=== PATIENT | female | born 1990 | race Hispanic/Latino ===

== ENCOUNTER 2022-07-20 14:21 | Emergency (ER) | payer OTHER ==
--- OUTSIDE RECORDS SUMMARY | 2022-07-20 14:25 | XMS REPORT | Continuity of Care Document ---
:1990 Author Organization [facility] t Address Formerly [facility] Gordon [address] [place] [address] Care Team Providers Name Role Phone Corbin Howard Attending Clinician Unavailable Jesu Andino Attending Clinician Unavailable Queenie Zepeda Attending Clinician Unavailable Zheng Alonso Attending Clinician Physician, No Primary or Family Admitting Clinician Unavaila ble Kendall, Roselia Admitting Clinician Unavailable Corbin Howard Admitting Clinician Unavailable Payers Payer Name Policy Type Policy Number Effective Date Expiration Date S ource Problems This patient has no known problems. Allergies, Adverse Reactions, Alerts Allergy Allergy Status Severity Reaction(s) Onset Inactive Treating Comm ents Source Name Type Date Date Clinician No Known DA Active U [facility] [place] No Known DA Active U [facility] 12-08 [facility] [place] No Known DA Active U [facility] [place] No Known DA Active U 2016-08 [facility] 09[facility]09 [facility] [place] No Known DA Active U 2016-08 [facility] 09[facility] [place] Social History Smoking Status Start Date Stop Date Source Social History [facility] Medications Ordered Filled Start Stop Current Ordering Indication Dosage Frequency Signature Comments Components Source Medication Medication Date Date Medication? Clinician (SIG) Name Name Ciprofloxac Yes 500 mg = 1 Memoria in 500 MG 3-05 tab, PO, l Oral Tablet 20:09: Q12H, X 7 H ermann [Cipro] 00 day, # 14 tab, 0 Refill(s), Pharmacy: [id number] Ondansetron Yes 4 mg = 1 Me moria 4 MG 3-05 tab, PO, l Disintegrat 20:08: TID, PRN He rmann ing Tablet 00 Nausea / Vomiting, Dissolve tab under tongue, # 15 tab, 0 Refill(s), Pharmacy: [facility] [id number] Azo-Cranber Yes 0 Memori a ry 3-05 Refill(s) l 19:27: [place] 00 meclizine No 25 mg = 1 Mem oria 25 mg oral 1-29 tab, PO, l tablet 14:38: TID, PRN [place] 00 for dizziness, X 10 day, # 30 tab, 1 Refill(s), Pharmacy: [id number] Vital Signs Vital Name Observation Time Observation Value Comments Source Weight 2018-10-27 19:25:00 [facility] [place] BMI Calculated 2018-10-27 19:25:00 Mem[facility] al [place] Height 2018-10-27 19:25:00 154.94 cm [facility] Heart Rate 2018-10-27 19:25:00 [facility] Temperature Oral (F) 2018-10-27 19:25:00 98.6 F [facility] Systolic (mm Hg) 2018-10-27 19:25:00 [place] rial [place] Diastolic (mm Hg) 2018-10-27 19:25:00 Mem orial [place] BMI Calculated 2018-09-22 13:59:00 Triciaori al [facility] Weight 2018-09-22 13:59:00 [facility] [place] Height 2018-09-22 13:59:00 154.94 cm [facility] Heart Rate 2018-09-22 13:59:00 [facility] Systolic (mm Hg) 2018-09-22 13:59:00 [place] rial [place] Diastolic (mm Hg) 2018-09-22 13:59:00 Mem orial [place] Temperature Oral (F) 2018-09-22 13:59:00 98.0 F [facility] Procedures Procedure Date / Time Performed Performing Clinician Ana gonzalez [id number] 2021-02-22 00:00:00 [facility] Miscarriage [facility] Encounters Start End Encounter Admission Attending Care Care Encounter Source Date/Time Date/Time Type Type Clinicians Facility Department ID 2020-10-18 Inpatient EL Fritz, [facility] RADI [id number] [facility] 13:00:00 Corbin [id number] [facility] 2020-10-06 Inpatient EL Maryo, [facility] [id number] [facility] 07:00:00 Corbin [id number] [facility] 2020-09-28 Inpatient Richardcato, [facility] RADI [id number] [facility] 10:00:00 Corbin [id number] [facility] 2020-07-10 Inpatient [facility] GIANLUCA [id number] [facility] 19:04:00 [id number] [facility] 2019-12-09 Inpatient [facility] GIANLUCA [id number] [facility] 21:12:00 [id number] [facility] 2022-05-03 2022-05-04 Emergency EM Sina, [facility] GIANLUCA [id number] [facility] 20:47:00 02:39:00 Jesu 40 [facility] 2022-04-26 2022-04-26 Emergency EM Duane, [facility] GIANLUCA [id number] [facility] 10:18:00 13:52:00 Queenie 29 [facility] 2021-02-22 2021-02-24 Inpatient EM Richardcato, [facility] OBPP [id number] [facility] 07:34:00 13:20:00 Corbin [id number] [facility] 2021-02-12 2021-02-12 Emergency EM Richardcato, [facility] ANA [id number] [facility] 15:35:00 16:50:00 Corbin [id number] [facility] 2018-10-27 2018-10-28 Outpatient nullFlavo [facility] [id number] Memoria 20:15:00 05:59:59 [facility] 2018-10-27 2018-10-27 [facility] [id number] 14:15:00 23:59:59 Gbito, 01 [facility] 2018-10-27 2018-10-27 Outpatient MHIE IE [id number] Memoria 14:15:00 14:15:00 01 thomas P[place]aguaGordon 2018-09-22 2018-09-23 Outpatient nullFlavo [facility] [id number] Memoria 14:00:00 05:59:59 r [facility] 00 [facility] 2018-09-22 2018-09-22 [facility] [id number] 08:00:00 23:59:59 Gbito, 00 [facility] 2018-09-22 2018-09-22 Outpatient Elhor [facility] [id number] 08:00:00 23:59:59 Gbito, 00 [facility] 2018-09-22 2018-09-22 Outpatient MICHAELIE DIANE [id number] Memoria 08:00:00 08:00:00 00 thomas Leyva Results Test Description Test Time Test Comments Results Result Comments Source COVID 19 Asymptomatic IH AG 2022-04-26 12:12:00 Test Item Value Reference Range Interpretation Comme nts COVID 19 Asymptomatic IH AG NEGATIVE NEGATIVE This test has been authorized only (test code = COVNONPUIAG) fo r the detection ofproteins from SARS-CoV-2, not for any other viruses orpatho gens. Negative results should be treated as presumptive and confirmed with a molecular assay , if necessary for patientmanageme nt. Negative results do not rule out COVID-19 andshould not be used as the sole basis for treatment orpat ient management decisions, incl uding infection controldecision s. Negative results should be consi dered in thecontext of a patient's recent exposures, history and the presence of clinical signs and sympt oms consistent withCOVID-19. T his test has not been FDA cleare d or approved; the test hasbeen au thorized by FDA under an Emerge ncy Use Authorization(E UA) for use by laboratories ce rtified under the CLIA thatmeet t he requirements to perform moderat e, high or waivedcomplexit y tests. This test is authorized f or use at thePoint of Care (POC), i.e., in patient care settingsop erating under a CLIA Certificate of Waiver, Certificate ofCompliance, o r Certificate of Accreditation. This test is only authorized for the duration of thedeclaration that circumstances exist justifyin g theauthorization of emergency us e of in vitro diagnostic test sfor detection and/or diagnosi s of COVID-19 under Pcgtsqy028(b)(1 ) of the Act, 21 U.S.C. 360bbb-3 (b)(1), unless theauthorizatio n is terminated or revoked sooner. DRUGS OF ABUSE [id number] 12:08:00 Test Item Value Reference Range Interpretation Comments UR COCAINE (test code = NEGATIVE NEGATIVE DETE CTION CUT OFF: COCAU) 150 ng/mL UR CANNABINOIDS (test NEGATIVE NEGATIVE DETECT ION CUT OFF: code = CANU) 50 ng/mL UR AMPHETAMINE (test code NEGATIVE NEGATIVE DE TECTION CUT OFF: = AMPHU) 500 ng/mL UR BARBITURATE QUAL (test NEGATIVE NEGATIVE DE TECTION CUT OFF: code = BARBQLU) 200 ng/mL UR BENZODIAZEPINE (test NEGATIVE NEGATIVE DETE CTION CUT OFF: code = BENZU) 150 ng/mL UR OPIATES QUAL (test NEGATIVE NEGATIVE DETECT ION CUT OFF: code = OPIAQLU) 100 ng/mL UR PHENCYCLIDINE (PCP) NEGATIVE NEGATIVE DETEC TION CUT OFF: (test code = PHENCU) 25 ng/m L COMPREHENSIVE METABOLIC [id number] 12:05:00 Test Item Value Reference Range Interpretation Comments SODIUM (test code = NA) 139 mEq/L 135-145 N POTASSIUM (test code = K) 4.4 mEq/L 3.5-5.0 N CHLORIDE (test code = CL) 104 mEq/L 100-115 N CARBON DIOXIDE (test code = CO2) 28 mEq/L 22-31 N ANION GAP (test code = GAP) 11.30 10-20 N GLUCOSE (test code = GLU) 91 mg/dL 65-110 N BLOOD UREA NITROGEN (test code = 12 mg/dL 7-18 N BUN) GLOMERULAR FILTRATION RATE (test 99 ml/min >60 N code = GFR) CREATININE (test code = CREAT) 0.7 mg/dL 0.5-1.0 N TOTAL PROTEIN (test code = PROT) 6.9 gm/dL 6.3-8.2 N ALBUMIN (test code = ALB) 3.8 gm/dL 3.4-4.8 N CALCIUM (test code = CA) 8.9 mg/dL 8.4-10.2 N BILIRUBIN TOTAL (test code = BILT) 0.8 mg/dL 0.2-1.0 N SGOT/AST (test code = AST) 19 units/L 15-37 N SGPT/ALT (test code = ALT) 25 units/L 12-78 N ALKALINE PHOSPHATASE TOTAL (test 79 units/L 46-116 N code = ALKP) [id number] 12:05:00 Test Item Value Reference Range Interpretation Comments TROPONIN-I (test <4.0 pg/mL <51.4 N Please Note :New method is code = TROPI) in use for tonja suring Troponin Aug 09 2021Units are pg/mL which differs from the prior testmethodology (ng/mL) by a factor of 100 0. D-DIMER [id number] 12:04:00 Test Item Value Reference Range Interpretation Comments D-DIMER QUANT 369 ng/mLDDU <255 H Reference Ran ge in (test code = : <570 DDIMER) ng/ml A positive test d oes not provide a defin itive diagnosis ofDVT and indicates the n eed for follow up clini kateryna studies. The pr edictive value of a nega tive test is 98% for rulingout DVT. CBC W/AUTO [id number] 11:52:00 Test Item Value Reference Range Interpretation Comments WHITE BLOOD CELL (test code = WBC) 4.4 K/mm3 6.5-12.3 L RED BLOOD CELL (test code = RBC) 3.77 M/mm3 3.51-4.69 N HEMOGLOBIN (test code = HGB) 11.9 g/dL 10.1-13.8 N HEMATOCRIT (test code = HCT) 34.5 % 32.5-41.8 N MEAN CELL VOLUME (test code = MCV) 91.5 fL 84.6-96.6 N MEAN CELL HGB (test code = MCH) 31.6 pg 27.3-33.9 N MEAN CELL HGB CONCETRATION (test 34.5 gm/dL 32.0-34.2 H code = MCHC) RED CELL DISTRIBUTION WIDTH (test 13.2 % 12.2-16.3 N code = RDW) PLATELET COUNT (test code = PLT) 234 K/mm3 134-363 N MEAN PLATELET VOLUME (test code = 9.0 fL 9.2-12.7 L MPV) NEUTROPHIL % (test code = NT%) 58.6 % 57.9-77.3 N LYMPHOCYTE % (test code = LY%) 29.6 % 14.5-29.7 N MONOCYTE % (test code = MO%) 8.7 % 3.6-10.2 N EOSINOPHIL % (test code = EO%) 2.1 % 0.0-3.0 N BASOPHIL % (test code = BA%) 0.5 % 0.1-0.9 N NEUTROPHIL # (test code = NT#) 2.6 K/mm3 LYMPHOCYTE # (test code = LY#) 1.3 K/mm3 MONOCYTE # (test code = MO#) 0.4 K/mm3 EOSINOPHIL # (test code = EO#) 0.09 K/mm3 BASOPHIL # (test code = BA#) 0.0 K/mm3 RBC MORPHOLOGY REQUIRED (test code NORMAL NORMAL = RBCM) PLATELET MORPHOLOGY REQUIRED (test NORMAL NORMAL code = PLTMR) UR HCG [id number] 11:51:00 Test Item Value Reference Range Interpretation Comments UR HCG QUAL (test NEGATIVE 1. Very di lute urine code = HCGQLU) specimens, as indicated by a lowspecific g ravity, may not contain rep resentative levels ofhCG. 2 . False negative result s may occur when the levels of hCGare below the sensi tivity level of the test. If is still suspec eric, a first morningurine sp ecimen should be colle cted 48 hours later and tested. - DUP VEIN UNI [id number] 00:00:[address] [facility] 1990 Sex: F Patient Name: FLORIDA AYALA Unit No: [id number] EXAMS: CPT CODE: [id number] [place] [address] PROCEDURE INFORMATION: Exam: US Duplex Left Lower Extremity Veins, Limited Exam date and time: 04/26/2022 12:14 PM Age: 31 years old Clinical indication: Pain; Leg, lower; Left; Prior surgery; Additional info: L leg pain; H/o dvt; 4 weeks S/P tummy tuck/breast aug TECHNIQUE: Imaging protocol: Real-time Duplex ultrasound of the Left Lower Extremity with 2-D taylor scale, color Doppler flow and spectral waveform analysis with image documentation. Limited exam focused on the left lower extremity veins. COMPARISON: OT US PREG AFTER 1ST TRI 10/18/2020 1:26 PM FINDINGS: Left deep veins: Unremarkable. The common femoral, femoral, proximal profunda femoral and popliteal veins are patent without thrombus. Normal Dopplerwaveforms. Normal compressibility and/or augmentation response. Left superficial veins: Unremarkable. Saphenofemoral junction is patent without thrombus. Soft tissues: Unremarkable. IMPRESSION: No evidence of deep vein thrombosis. at 1308 Reported and signed by: Dalia Sanches MD CC: Queenie Zepeda MD Technologist: Babita Murillo RDMS Probe: Trnscrbd D/ (1308) GCD.CPS Orig Print D/T: S: 04/26/2022 (1308) [facility] NAME: FLORIDA AYALA Radiology Department PHYS: Queenie Gunderson MD [address] : 1990 AGE: 31 SEX: F [place], [place] [address] LOC: JodiERS PHONE #: [phone] EXAM DATE: 04/26/2022 STATUS: REG ER FAX #: [phone] RAD NO: Page 1 Signed Report PatientName: FLORIDA AYALA Unit No: [id number] EXAMS: CPT CODE: [id number] [place] [address] (Continued)[facility] NAME: FLORIDA AYALA Radiology Department PHYS: Queenie Gunderson PMD [address] : 1990 AGE: 31 SEX: F [place], [place] [address] LOC: ZIPHONE #: [phone] EXAM DATE: 04/26/2022 STATUS: REG ER FAX #: [phone] RAD NO: Page 2 SignedReport- XR CHEST 2 [id number] 00:00:00 [facility] 1990 Sex: F Patient Name: FLORIDA AYALA Unit No: [id number] EXAMS: CPT CODE: [id number] XR CHEST 2 V 61864 PROCEDURE INFORMATION: Exam: XR Chest Exam date and time: 04/26/2022 12:16 PM Age: 31 years old Clinical indication: Pain; Chest pressure; Prior surgery; Surgery date: <1 month; Surgery type: Breast augmentation 03/28/2022; Additional info: Chest pain TECHNIQUE: Imaging protocol: Radiologic exam of the chest. View s: 2 views. PA and Lateral COMPARISON: OT XR CHEST 1V 02/19/2018 10:09 PM FINDINGS: Lungs: The lungs are clear. Pleural spaces: Unremarkable. No pleural effusion. No pneumothorax. Heart/Mediastinum: Theheart size is normal. The pulmonary vasculature is normal. The mediastinal contour is normal. The trachea is midline. Bones/joints: No acute abnormality seen. There is mild curvature of the upper thoracic spine with concavity towards the left. Changes of calcific tendinosis noted involving the right shoulder. Surgical clips are seen overlying both mid oscar thoraces. IMPRESSION: No acute cardiopulmonary findings at 1234 Reported and signed by: Evan Kevin MD CC: Queenie Zepeda MD Technologist: Mickey Rosario, RT, CT Trnscrbd D/ (8974) GCD.CPS Orig Print D/T: S: 04/26/2022 (8370) [facility] NAME: FLORIDA AYALA Radiology Department PHYS: Queenie Gunderson MD [address] : 1990 AGE: 31 SEX: F [place], [place] [address] LOC: ZI PHONE #: [phone] EXAM DATE: 04/26/2022 STATUS: REG ER FAX #: [phone] RAD NO: Page 1 Signed ReportHGB [id number] 12:13:00 Test Item Value Reference Range Interpretation Comments HEMOGLOBIN (test code = HGB) 11.2 g/dL 10.1-13.8 N HEMATOCRIT (test code = HCT) 32.3 % 32.5-41.8 L AG HEPATITIS B [id number] 05:41:00 Test Item Value Reference Range Interpretation Comments AG HEPATITIS B SURFACE (test code NONREACTIVE NONREACTIVE = HBSAG) IS CONSENT FORM SIGNED FOR HIV TESTING? YAB HEPATITIS C [id number] 05:41:00 Test Item Value Reference Range Interpretation Comments AB HEPATITIS C (test code = NONREACTIVE NONREACTIVE HCVAB) SIGNAL TO CUTOFF (test code = <0.02 <0.80 N CUTOFF) IS CONSENT FORM SIGNED FOR HIV TESTING? YAB [id number] 05:41:00 Test Item Value Reference Range Interpretation Comments AB TREPONEMA (test code = TREPAB) NONREACTIVE NONREACTIVE IS CONSENT FORM SIGNED FOR HIV TESTING? YAB HIV 1 05:41:00 Test Item Value Reference Range Interpretation Comments AB HIV 1 2 (test NONREACTIVE NONREACTIVE Done by [facility] code = [id number]) 4th Gen HIV Ag/Ab Combo Screen IS CONSENT FORM SIGNED FOR HIV TESTING? YAG HEPATITIS B [id number] 05:29:00 Test Item Value Reference Range Interpretation Comments AG HEPATITIS B SURFACE (test code NONREACTIVE NONREACTIVE = HBSAG) IS CONSENT FORM SIGNED FOR HIV TESTING? YAB HEPATITIS C [id number] 05:29:00 Test Item Value Reference Range Interpretation Comments AB HEPATITIS C (test code = HCVAB) NONREACTIVE SIGNAL TO CUTOFF (test code = CUTOFF) <0.80 IS CONSENT FORM SIGNED FOR HIV TESTING? YAB [id number] 05:29:00 Test Item Value Reference Range Interpretation Comments AB TREPONEMA (test code = TREPAB) NONREACTIVE NONREACTIVE IS CONSENT FORM SIGNED FOR HIV TESTING? YAB HIV 1 05:29:00 Test Item Value Reference Range Interpretation Comments AB HIV 1 2 (test code = [id number]) NONREACTIVE IS CONSENT FORM SIGNED FOR HIV TESTING? YCBC W/AUTO [id number] 04:24:00 Test Item Value Reference Range Interpretation Comments WHITE BLOOD CELL (test code = WBC) 7.7 K/mm3 6.5-12.3 N RED BLOOD CELL (test code = RBC) 3.55 M/mm3 3.51-4.69 N HEMOGLOBIN (test code = HGB) 11.4 g/dL 10.1-13.8 N HEMATOCRIT (test code = HCT) 33.2 % 32.5-41.8 N MEAN CELL VOLUME (test code = MCV) 93.5 fL 84.6-96.6 N MEAN CELL HGB (test code = MCH) 32.1 pg 27.3-33.9 N MEAN CELL HGB CONCETRATION (test 34.3 gm/dL 32.0-34.2 H code = MCHC) RED CELL DISTRIBUTION WIDTH (test 12.9 % 12.2-16.3 N code = RDW) PLATELET COUNT (test code = PLT) 160 K/mm3 134-363 N MEAN PLATELET VOLUME (test code = 10.0 fL 9.2-12.7 N MPV) NEUTROPHIL % (test code = NT%) 68.6 % 57.9-77.3 N LYMPHOCYTE % (test code = LY%) 22.5 % 14.5-29.7 N MONOCYTE % (test code = MO%) 7.0 % 3.6-10.2 N EOSINOPHIL % (test code = EO%) 1.0 % 0.0-3.0 N BASOPHIL % (test code = BA%) 0.3 % 0.1-0.9 N NEUTROPHIL # (test code = NT#) 5.3 K/mm3 LYMPHOCYTE # (test code = LY#) 1.7 K/mm3 MONOCYTE # (test code = MO#) 0.5 K/mm3 EOSINOPHIL # (test code = EO#) 0.08 K/mm3 BASOPHIL # (test code = BA#) 0.0 K/mm3 RBC MORPHOLOGY REQUIRED (test code NORMAL NORMAL = RBCM) PLATELET MORPHOLOGY REQUIRED (test NORMAL NORMAL code = PLTMR) COVID 19 Asymptomatic IH [id number] 04:06:00 Test Item Value Reference Range Interpretation Comments COVID 19 NEGATIVE NEGATIVE This test has b een Asymptomatic IH AG authorize d only for the (test code = detection ofpro teins from COVNONPUIAG) SARS-CoV-2, not for any other viruses orpathogens. Ne gative results should be treated as presumptive andconfirmed wi th a molecular assay , if necessary for patientmanageme nt. Negative result s do not rule out COVID- 19 andshould not b e used as the sole basis for treatment orpat ient management deci sions, including infec tion controldecision s. Negative result s should be considered i n thecontext of a patient's recent exposure s, history and thepresence of clinical signs and symptoms consis tent withCOVID-19. T his test has not been FD A cleared or approved; th e test hasbeen authori zed by FDA under an Emerge ncy Use Authorization(E UA) for use by laborato helen certified under the CLIA thatmeet the re quirements to perform mode rate, high or waivedcomple xity tests. This bertha t is authorized for use at thePoint of Car e (POC), i.e., in patien t care settingsoperati ng under a CLIA Certificat e of Waiver, Certiftino monk ofCompliance, o r Certificate of Accreditation. This test is only authori george for the duration of thedeclaration that circumstances e xist justifying theauthorizatio n of emergency use o f in vitro diagnostic test sfor detection and/o r diagnosis of CO VID-19 under Mguhzhj39 4(b)(1) of the Act, 21 U.S .C. 360bbb-3(b)(1), unless theauthorizatio n is terminated or r evoked sooner. - US PREG AFTER [id number] 15:15:00 [facility] : 1990 Sex: F Patient Name: FLORIDA AYALA Unit No: [id number] EXAMS: CPT CODE: [id number] US PREG AFTER [address] [facility] [address] [place], [place] [address] OBSTETRICAL ULTRASOUND REPORT Pat. Name: FLORIDA AYALA Pat. No: [id number] Date: 10/18/2020 1:26pm , Age: 14 1990, 30 Pregnancies: 6, Para 1, Ab 4 LMP: Unknown GA by US: 21w2d GA Selected: 22w2d (From Known E) JAYA: 02/19/2021 Referring MD: CORBIN HOWARD Reports Developer: Jorge Dickens RDMS CPT4: [id number] Admitting MD: CORBIN HOWARD Hist/Ind: SCAN 1 ANATOMY SCAN MEASUREMENTS AGE GROWTH EVALUATION Measurement GA Range Srce %for GA Ratios ----- ---- ------- BPD 4.8 cm 20w4d (26n5c-68h0r) Hadl BPD <05 FL/BPD 0.79 HC 18.8 cm 21w0d (21k3k-76t0f) Hadl HC 13% FL/AC 0.22 (0.20 - 0.24) APD 5.6 cm APD HC/AC 1.07 (1.04 - 1.23) TAD 5.6 cm TAD CI 0.74 (0.70 - 0.86) AC 17.6 cm 22w2d (20w2d- 24w2d) Hadl AC 50% FL 3.8 cm 21w5d (70t9y-04h1d) Hadl FL 39% HL 3.5 cm 22w0d (29g2l-25m6p) Jesu HL 46% GA for sonogram 21w2d (38i5t-92r6r) Weight Estimate: based on (BPD,HC,AC,FL) Hadlock Weight: 479 gm (409-549) Hadlock : 1l bs, 0oz Normal: 500 gm (334-940) Aditya Wt% 45% for 22.3 wks Cervical Length: 3.8 cm Heart Rate: 151 bpm CLINICAL SUMMARY Type of Gestation: Foster Intrauterine in vertex presentation. size is appropriate for gestational age. motion and organs seen: heart motion seen somatic activity observed body and limb movements seen Four chamber heart observed Left ventricular outflow tract (LVOT) seen Right ventricular outflow tract (RVOT) seen Normal intracranial anatomy seen Umbilical cord insertion in fetus seen stomach, Renal Fossa, Bladder and Spine seen Three vessel umbilical cord noted THERE IS SUGGESTION/QUESTION OF A CLEFT PALATE INVOLVING THE UPPER [facility] NAME: FLORIDA AYALA Radiology Department PHYS: Corbin Bar MD [address] : 1990 AGE: 30 SEX: F [place], [place] [address] LOC: F.RAD PHONE #: [phone] EXAM DATE: 10/18/2020 STATUS: REG CLI FAX #: [phone] RAD NO: Page 1 Signed Report (CONTINUED) Patient Name: FLORIDA AYALA Unit No: [id number] EXAMS: CPT CODE: [id number] US PREG AFTER [id number] (Continued) PALATE. Placental location: Posterior Placental maturity : Grade 1 There is no evidence of placenta previa. Amniotic fluid volume is normal. Thank you for allowing us to participate in the care of this patient. FINDINGS DISCUSSED WITH DR HOWARD. Evan Kevin M.D. ----- Electronic Signature 10/18/2020 03:15pm at 1515 Reported and signed by: Evan Kevin MD CC: Technologist: Jorge Dickens RDMS Probe: Trnscrbd D/ (1515) [id number] Orig Print D/T: S: 10/18/2020 (1554) [facility] NAME: FLORIDA AYALA Radiology Department PHYS: Corbin Bar MD [address] : 1990 AGE: 30 SEX: F [place], [place] [address] LOC: David.RAD PHONE #: [phone] EXAM DATE: 10/18/2020 STATUS: REG CLI FAX #: [phone] RAD NO: Page 2 Signed Report Patient Name: FLORIDA AYALA Unit No: [id number] EXAMS: CPT CODE: [id number] US PREG AFTER 1ST TRI [address]17[address] (Continued) [facility] NAME: FLORIDA AYALA Radiology Department PHYS: Corbin Bar MD [address] : 1990 AGE: 30 SEX: F [place], [place] [address] LOC: David.RAD PHONE #: [phone] EXAM DATE: 10/18/2020 STATUS: REG CLI FAX #: [phone] RAD NO: Page 3 Signed ReportUA RFLX MICR CULT IF [id number] 19:55:00 Test Item Value Reference Range Interpretation Comments UA COLOR (test code = COLU) YELLOW YELLOW UA APPEARANCE (test code = CLOUDY CLEAR A APPU) UA GLUCOSE DIPSTICK (test code NEGATIVE NEG = DGLUU) UA BILIRUBIN DIPSTICK (test NEGATIVE NEG code = BILU) UA KETONE DIPSTICK (test code NEGATIVE NEG = KETU) UA SPECIFIC GRAVITY (test code 1.021 1.001-1.035 N = SGU) UA BLOOD DIPSTICK (test code = NEG NEG JOVAN) UA PH DIPSTICK (test code = 7.0 5-9 EARL) UA PROTEIN DIPSTICK (test code NEGATIVE NEG = PROU) UA UROBILINIOGEN DIPSTICK NEGATIVE mg/dL NEG (test code = URO) UA NITRITE DIPSTICK (test code NEG NEG = CAROLE) UA LEUKOCYTE ESTERASE DIPSTICK NEG NEG (test code = LEUU) UA WBC (test code = WBCU) 0-2 #/hpf NONE SEEN UA RBC (test code = RBCU) 0-2 #/hpf NONE SEEN UA EPITHELIAL CELLS (test code RARE #/HPF RARE-FEW = EPIU) UA BACTERIA (test code = BACU) RARE /HPF RARE-FEW UA MUCUS (test code = MUCU) RARE NONE SEEN UA AMORPHOUS SEDIMENT (test 2+ code = AMORU) Indication for culture: Suprapubic PainSpecimen Description: CLEAN CATCH COMPREHENSIVE METABOLIC [id number] 19:53:00 Test Item Value Reference Range Interpretation Comments SODIUM (test code = NA) 136 mEq/L 135-145 N POTASSIUM (test code = K) 3.7 mEq/L 3.5-5.0 N CHLORIDE (test code = CL) 100 mEq/L 100-115 N CARBON DIOXIDE (test code = CO2) 28 mEq/L 22-31 N ANION GAP (test code = GAP) 12.00 10-20 N GLUCOSE (test code = GLU) 82 mg/dL 65-110 N BLOOD UREA NITROGEN (test code = 9 mg/dL 7-18 N BUN) GLOMERULAR FILTRATION RATE (test 120 ml/min >60 N code = GFR) CREATININE (test code = CREAT) 0.6 mg/dL 0.5-1.0 N TOTAL PROTEIN (test code = PROT) 8.0 gm/dL 6.3-8.2 N ALBUMIN (test code = ALB) 4.1 gm/dL 3.4-4.8 N CALCIUM (test code = CA) 9.6 mg/dL 8.4-10.2 N BILIRUBIN TOTAL (test code = BILT) 0.4 mg/dL 0.2-1.0 N SGOT/AST (test code = AST) 20 units/L 15-37 N SGPT/ALT (test code = ALT) 35 units/L 12-78 N ALKALINE PHOSPHATASE TOTAL (test 81 units/L 46-116 N code = ALKP) CBC W/AUTO [id number] 19:34:00 Test Item Value Reference Range Interpretation Comments WHITE BLOOD CELL (test code = WBC) 8.5 K/mm3 6.6-12.1 N RED BLOOD CELL (test code = RBC) 4.54 M/mm3 3.45-5.01 N HEMOGLOBIN (test code = HGB) 14.2 g/dL 10.7-13.9 H HEMATOCRIT (test code = HCT) 41.3 % 32.1-42.1 N MEAN CELL VOLUME (test code = MCV) 91 fL 84.1-94.8 N MEAN CELL HGB (test code = MCH) 31.3 pg 27-35 N MEAN CELL HGB CONCETRATION (test 34.4 gm/dL 32.2-34.1 H code = MCHC) RED CELL DISTRIBUTION WIDTH (test 11.7 % 12.4-16.5 L code = RDW) PLATELET COUNT (test code = PLT) 304 K/mm3 133-385 N MEAN PLATELET VOLUME (test code = 9.3 fl 9.1-12.7 N MPV) NEUTROPHIL % (test code = NT%) 69.9 % 56.5-79.4 N LYMPHOCYTE % (test code = LY%) 22.5 % 14.3-34.3 N MONOCYTE % (test code = MO%) 6.2 % 5.1-10.4 N EOSINOPHIL % (test code = EO%) 0.6 % 0.1-3.0 N BASOPHIL % (test code = BA%) 0.4 % 0.1-1.0 N NEUTROPHIL # (test code = NT#) 6.0 K/mm3 LYMPHOCYTE # (test code = LY#) 1.9 K/mm3 MONOCYTE # (test code = MO#) 0.5 K/mm3 EOSINOPHIL # (test code = EO#) 0.05 K/mm3 BASOPHIL # (test code = BA#) 0.0 K/mm3 RBC MORPHOLOGY REQUIRED (test code NORMAL NORMAL = RBCM) PLATELET MORPHOLOGY REQUIRED (test NORMAL NORMAL code = PLTMR) HCG [id number] 22:26:00 Test Item Value Reference Range Interpretation Comments HCG SERUM (test 11 INTERPRETATI ON:VALUES BETWEEN code = HCG) 15-20 milliInte rnational units/mL NEED T O BERETESTED WITHIN 48 HOURS . All units for these ranges ar e in milliInternatio nalunits/mL0-1 WK AFTER CONCEP TION 0-50 1-2 WKS AFTER LINDA PTION 40-3002-3 WKS AFTER LINDA PTION 100-1,0003-4 WK S AFTER CONCEPTION 500- 6,0001-2 MONTHS AFTER CONCEPTIO N 5,000-200,0002- 3 MONTHS AFTER CONCEPTION 10,0 00-100,0002ND TRIMESTER 3,000 -50,0003RD TRIMESTER 1,00 0-50,000 SPECIMENS WITH AN HCG LEVEL FROM 0-6 milliInternatio nalunits/mL SHOULD BE CONSI DERED NEGATIVE HCG SERUM [id number] 21:52:00 Test Item Value Reference Range Interpretation Comments HCG SERUM QUAL (test code = HCGQL) NEGATIVE CHEMISTRY 7 [id number] 21:51:00 Test Item Value Reference Range Interpretation Comments SODIUM (test code = NA) 137 mEq/L 135-145 N POTASSIUM (test code = K) 4.1 mEq/L 3.5-5.0 N CHLORIDE (test code = CL) 102 mEq/L 100-115 N CARBON DIOXIDE (test code = CO2) 31 mEq/L 22-31 N ANION GAP (test code = GAP) 8.60 10-20 L GLUCOSE (test code = GLU) 80 mg/dL 65-110 N BLOOD UREA NITROGEN (test code = 14 mg/dL 7-18 N BUN) GLOMERULAR FILTRATION RATE (test 60 ml/min >60 N code = GFR) CREATININE (test code = CREAT) 1.1 mg/dL 0.5-1.0 H CALCIUM (test code = CA) 8.8 mg/dL 8.4-10.2 N UR HCG [id number] 21:49:00 Test Item Value Reference Range Interpretation Comments UR HCG QUAL (test NEGATIVE RESULTS VE RIFIED BY REPEAT code = HCGQLU) ANALYSIS1. Ve ry dilute urine specimens , as indicated by a lowspecific gravity, may no t contain floor representative levels ofhCG. 2. False negative results may occ ur when the levels of hCGar e below the sensitivity lev el of the test. If pregna ncy is still suspected, a fi rst morningurine sp ecimen should be colle cted 48 hours later and tested. UA RFLX MICR CULT IF [id number] 21:47:00 Test Item Value Reference Range Interpretation Comments UA COLOR (test code = YELLOW YELLOW COLU) UA APPEARANCE (test code Slightly-Cloudy CLEAR = APPU) UA GLUCOSE DIPSTICK (test NEGATIVE NEG code = DGLUU) UA BILIRUBIN DIPSTICK NEGATIVE NEG (test code = BILU) UA KETONE DIPSTICK (test NEGATIVE NEG code = KETU) UA SPECIFIC GRAVITY (test 1.025 1.001-1.035 N code = SGU) UA BLOOD DIPSTICK (test 3+ NEG A code = JOVAN) UA PH DIPSTICK (test code 6.0 5-9 = EARL) UA PROTEIN DIPSTICK (test NEGATIVE NEG code = PROU) UA UROBILINIOGEN DIPSTICK 4.0 mg/dL NEG A (test code = URO) UA NITRITE DIPSTICK (test NEG NEG code = CAROLE) UA LEUKOCYTE ESTERASE NEG NEG DIPSTICK (test code = LEUU) UA WBC (test code = WBCU) 0-2 #/hpf NONE SEEN UA RBC (test code = RBCU) TOO NUMEROUS TO CNT NONE SEEN A #/hpf UA EPITHELIAL CELLS (test RARE #/HPF RARE-FEW code = EPIU) UA BACTERIA (test code = RARE /HPF RARE-FEW BACU) UA MUCUS (test code = RARE NONE SEEN MUCU) Indication for culture: Suprapubic PainCBC W/AUTO [id number] 21:37:00 Test Item Value Reference Range Interpretation Comments WHITE BLOOD CELL (test code = WBC) 6.8 K/mm3 6.6-12.1 N RED BLOOD CELL (test code = RBC) 4.21 M/mm3 3.45-5.01 N HEMOGLOBIN (test code = HGB) 13.1 g/dL 10.7-13.9 N HEMATOCRIT (test code = HCT) 37.9 % 32.1-42.1 N MEAN CELL VOLUME (test code = MCV) 90 fL 84.1-94.8 N MEAN CELL HGB (test code = MCH) 31.1 pg 27-35 N MEAN CELL HGB CONCETRATION (test 34.6 gm/dL 32.2-34.1 H code = MCHC) RED CELL DISTRIBUTION WIDTH (test 12.2 % 12.4-16.5 L code = RDW) PLATELET COUNT (test code = PLT) 247 K/mm3 133-385 N MEAN PLATELET VOLUME (test code = 9.1 fl 9.1-12.7 N MPV) NEUTROPHIL % (test code = NT%) 62.6 % 56.5-79.4 N LYMPHOCYTE % (test code = LY%) 29.2 % 14.3-34.3 N MONOCYTE % (test code = MO%) 6.4 % 5.1-10.4 N EOSINOPHIL % (test code = EO%) 1.2 % 0.1-3.0 N BASOPHIL % (test code = BA%) 0.3 % 0.1-1.0 N NEUTROPHIL # (test code = NT#) 4.3 K/mm3 LYMPHOCYTE # (test code = LY#) 2.0 K/mm3 MONOCYTE # (test code = MO#) 0.4 K/mm3 EOSINOPHIL # (test code = EO#) 0.08 K/mm3 BASOPHIL # (test code = BA#) 0.0 K/mm3 RBC MORPHOLOGY REQUIRED (test code NORMAL NORMAL = RBCM) PLATELET MORPHOLOGY REQUIRED (test NORMAL NORMAL code = PLTMR) HCG [id number] 20:09:00 Test Item Value Reference Range Interpretation Comments HCG SERUM (test 240 INTERPRETATI ON:VALUES BETWEEN code = HCG) 15-20 milliInte rnational units/mL NEED T O BERETESTED WITHIN 48 HOURS . All units for these ranges ar e in milliInternatio nalunits/mL0-1 WK AFTER CONCEP TION 0-50 1-2 WKS AFTER LINDA PTION 40-3002-3 WKS AFTER LINDA PTION 100-1,0003-4 WK S AFTER CONCEPTION 500- 6,0001-2 MONTHS AFTER CONCEPTIO N 5,000-200,0002- 3 MONTHS AFTER CONCEPTION 10,0 00-100,0002ND TRIMESTER 3,000 -50,0003RD TRIMESTER 1,000 -50,000 SPECIMENS WITH AN HCG LEVEL FROM 0-6 milliInternatio nalunits/mL SHOULD BE CONSI DERED NEGATIVE - US TRANSVAGINAL [id number] 20:08:00 Patient Name: FLORIDA AYALA Unit No: [id number] EXAMS: CPT CODE: [id number] US TRANSVAGINAL [id number] TRANSABDOMINAL AND TRANSVAGINAL OBSTETRICAL PELVIC ULTRASOUND INDICATION: 6 weeks . Vaginal bleeding for one day. TECHNIQUE: Transabdominal and transvaginal obstetrical pelvic ultrasound was performed with taylor scale and Doppler images. COMPARISONS: Obstetric ultrasound 02/19/2018 FINDINGS: TRANSABDOMINAL: The uterus measures 8.4 x 4.3 x 6.1 cm. The endometrial stripe measures 1.2 cm thick. There is no endometrial canal fluid collection. There is no intrauterine or extrauterine gestation detected. The right ovary measures 2.1 x 1.6 x 1.8 cm. There are mild follicular changes. There is normal color Doppler blood flow. The left ovary measures 4.4 x 2.2 x 2.1 cm. There is a 2 x 1.5 x 1.5cm cyst with thin internal septation within the left ovary. There is no intra-abdominal free fluid. Transvaginal pelvic ultrasound was performed in order to better visualize the pelvic structures. TRANSVAGINAL PELVIC ULTRASOUND: The uterus measures 9.3 x 4.5 x 5.8 cm. The endometrial stripe measures 1.9 cm thick and appears mobile on cinematic images. There are several small endometrial cysts. There is no intrauterine or extrauterine gestational sac detected. The cervix is closed. The right ovary measures 2.9 x 1.4 x 2.4 cm with normal follicular changes. There is normal Doppler flow to the right ovary. The left ovary measures 4.2 x 2.1 x 1.8 cm. There is a 1.9 x 1.5 x 1.5 cm complex cyst in the left ovary with a thickened internal septation and small nodular component. There is no Doppler flow within the nodular component. There is normal Doppler blood flow to the left ovary. There is a small amount of simple free fluid in the pelvic cul-de-sac. IMPRESSION: 1. The endometrial stripe measures 1.9 cm thick and appears mobile on cinematic images suggesting blood clot. There are several small endometrial cysts. This could represent molar . There is no intrauterine or extrauterine gestation detected. The findings could [facility] NAME: HENNA AYALAIA Radiology Department PHYS: GONMARBIN.Jamie Villafana MD [address] : 1990 AGE: 28 SEX: F [place], [place] [address] LOC: ZI PHONE #: [phone] EXAM DATE: 06/20/2019 STATUS: REG ER FAX #: [phone] RAD NO: Page 1 Signed Report (CONTINUED) Patient Name: FLORIDA AYALA Unit No: [id number] EXAMS: CPT CODE: [id number] US TRANSVAGINAL W/PELVIS 62852 (Continued) be secondary to spontaneous expulsion of products, hidden ectopic or very early . Close clinical correlation is recommended. Consider short-term follow-up ultrasound and beta hCG. 2. There is a small amount of simple free fluid in the pelvis. 3. There is an indeterminate complex 1.9 x 1.5 x 1.5 cm cyst in the left ovary. This could be a hemorrhagic corpus luteal cyst, but cystic neoplasm is not excluded. Consider 4-6 week follow-up ultrasound to evaluate further. Ovarian protocol unenhanced and contrast-enhanced MRI could also be considered, but is not advised at this potential early gestational age. at 2007 Reported and signed by: Paul Lema DO CC: Jamie Floyd MD Technologist: Carlita Nelson [facility] Probe: [id number] Trnscrbd D/ (2007) [id number] Orig Print D/T: S: 06/20/2019 (2011) [facility] NAME: FLORIDA PADRON Radiology Department PHYS: Jamie Anna MD [address] : 1990 AGE: 28 SEX: F [place] [address] LOC: JodiERS PHONE #: [phone] EXAM DATE: 06/20/2019 STATUS: REG ER FAX #: [phone] RAD NO: Page 2 Signed Report Patient Name: FLORIDA AYALA Unit No: [id number] EXAMS: CPT CODE: [id number] US TRANSVAGINAL W/PELVIS 09755 (Continued) [facility] NAME: FLORIDA AYALA Radiology Department PHYS: Jamie Anna MD [address] : 1990 AGE: 28 SEX: F [place] [address] LOC: JodiERS PHONE #: EXAM DATE: 06/20/2019 STATUS: REG ER FAX #: [phone] RAD NO: Page 3 Signed Report- US PELVIS [id number] 20:08:00 Patient Name: FELIXFLORIDA BARRON Unit No: [id number] EXAMS: CPT CODE: [id number] US PELVIS COMPLETE [id number] AND TRANSVAGINAL OBSTETRICAL PELVIC ULTRASOUND INDICATION: 6 weeks . Vaginal bleeding for one day. TECHNIQUE: Transabdominal and transvaginal obstetrical pelvic ultrasound was performed with taylor scale and Doppler images. COMPARISONS: Obstetric ultrasound 02/19/2018 FINDINGS: BERNABE SABDOMINAL: The uterus measures 8.4 x 4.3 x 6.1 cm. The endometrial stripe measures 1.2 cm thick. There is no endometrial canal fluid collection. There is no intrauterine or extrauterine gestation detected. The right ovary measures 2.1 x 1.6 x 1.8 cm. There are mild follicular changes. There is normalcolor Doppler blood flow. The left ovary measures 4.4 x 2.2 x 2.1 cm. There is a 2 x 1.5 x 1.5 cm cyst with thin internal septation within the left ovary. There is no intra-abdominal free fluid. Transvaginal pelvic ultrasound was performed in order to better visualize the pelvic structures. TRANSVAGINAL PELVIC ULTRASOUND: The uterus measures 9.3 x 4.5 x 5.8 cm. The endometrial stripe measures 1.9 cm thick and appears mobile on cinematic images. There are several small endometrial cysts. There is nointrauterine or extrauterine gestational sac detected. The cervix is closed. The right ovary measures 2.9 x 1.4 x 2.4 cm with normal follicular changes. There is normal Doppler flow to the right ovary.The left ovary measures 4.2 x 2.1 x 1.8 cm. There is a 1.9 x 1.5 x 1.5 cm complex cyst in the left ovary with a thickened internal septation and small nodular component. There is no Doppler flow withinthe nodular component. There is normal Doppler blood flow to the left ovary. There is a small amountof simple free fluid in the pelvic cul-de-sac. IMPRESSION: 1. The endometrial stripe measures 1.9 cmthick and appears mobile on cinematic images suggesting blood clot. There are several small endometrial cysts. This could represent molar . There is no intrauterine or extrauterine gestation detected. The findings could [facility] NAME: FLORIDA AYALA Radiology Department PHYS: BELTRAN.Talia - Jamie Floyd MD [address] : 1990 AGE: 28 SEX: F [place], [place] [address] LOC: JodiERS PHONE #: [phone] EXAM DATE: 06/20/2019 STATUS: REG ER FAX #: [phone] RAD NO: Page 1 Signed Report (CONTINUED) Patient Name: FLORIDA AYALA Unit No: [id number] EXAMS: CPT CODE: [id number] US PELVIS COMPLETE 01530 (Continued) be secondary to spontaneous expulsion of products, hidden ectopic or very early . Close clinical correlation is recommended. Consider short-term follow-up ultrasound and beta hCG. 2. There is a small amount of simple free fluid in the pelvis. 3. There is an indeterminate complex 1.9 x 1.5 x 1.5 cm cyst in the left ovary. This could be a hemorrhagic corpus luteal cyst, but cystic neoplasm is not excluded. Consider 4-6week follow-up ultrasound to evaluate further. Ovarian protocol unenhanced and contrast-enhanced MRIcould also be considered, but is not advised at this potential early gestational age. at 2007 Reported and signed by: Paul Lema DO CC:Jamie Flyod MD; Corbin Howard Technologist: Carlita Nelson RDMS Probe: Trnscrbd D/ (2007) [email or web address] Orig Print D/T: S: 06/20/2019 (2011) [facility] NAME: FELIXANDERSONFLORIDA Radiology Department PHYS: Jamie Anna MD [address] : 1990 AGE: 28 SEX: F [place], [place] [address] LOC: JodiERS PHONE #: [phone] EXAM DATE:06/20/2019 STATUS: REG ER FAX #: [phone] RAD NO: Page 2 Signed Report Patient Name: FLORIDA AYALA Unit No: [id number] EXAMS: CPT CODE: [id number] US PELVIS COMPLETE 80381 (Continued) [facility] NAME: LUCYFLORIDA Radiology Department PHYS: JUAN FloydJamie MD [address] : 1990 AGE: 28 SEX: F [place], [place] [address] LOC: ZI PHONE #: [phone] EXAM DATE: 06/20/2019 STATUS: REG ER FAX #: [phone] RAD NO: Page 3 Signed ReportCOMPREHENSIVE METABOLIC [id number] 19:40:00 Test Item Value Reference Range Interpretation Comments SODIUM (test code = NA) 138 mEq/L 135-145 N POTASSIUM (test code = K) 4.4 mEq/L 3.5-5.0 N CHLORIDE (test code = CL) 105 mEq/L 100-115 N CARBON DIOXIDE (test code = CO2) 27 mEq/L 22-31 N ANION GAP (test code = GAP) 10.90 10-20 N GLUCOSE (test code = GLU) 85 mg/dL 65-110 N BLOOD UREA NITROGEN (test code = 13 mg/dL 7-18 N BUN) GLOMERULAR FILTRATION RATE (test 149 ml/min >60 N code = GFR) CREATININE (test code = CREAT) 0.5 mg/dL 0.5-1.0 N TOTAL PROTEIN (test code = PROT) 6.8 gm/dL 6.3-8.2 N ALBUMIN (test code = ALB) 3.7 gm/dL 3.4-4.8 N CALCIUM (test code = CA) 8.4 mg/dL 8.4-10.2 N BILIRUBIN TOTAL (test code = BILT) 0.4 mg/dL 0.2-1.0 N SGOT/AST (test code = AST) 24 units/L 15-37 N SGPT/ALT (test code = ALT) 22 units/L 12-78 N ALKALINE PHOSPHATASE TOTAL (test 68 units/L 46-116 N code = ALKP) CBC W/AUTO [id number] 18:50:00 Test Item Value Reference Range Interpretation Comments WHITE BLOOD CELL (test code = WBC) 7.9 K/mm3 6.6-12.1 N RED BLOOD CELL (test code = RBC) 4.31 M/mm3 3.45-5.01 N HEMOGLOBIN (test code = HGB) 13.4 g/dL 10.7-13.9 N HEMATOCRIT (test code = HCT) 38.9 % 32.1-42.1 N MEAN CELL VOLUME (test code = MCV) 90 fL 84.1-94.8 N MEAN CELL HGB (test code = MCH) 31.1 pg 27-35 N MEAN CELL HGB CONCETRATION (test 34.4 gm/dL 32.2-34.1 H code = MCHC) RED CELL DISTRIBUTION WIDTH (test 11.8 % 12.4-16.5 L code = RDW) PLATELET COUNT (test code = PLT) 236 K/mm3 133-385 N IMMATURE PLATELET FRACTION (test 0.0 % 0.0-10.8 N code = IPF) MEAN PLATELET VOLUME (test code = 9.8 fl 9.1-12.7 N MPV) NEUTROPHIL % (test code = NT%) 65.2 % 56.5-79.4 N LYMPHOCYTE % (test code = LY%) 27.6 % 14.3-34.3 N MONOCYTE % (test code = MO%) 5.9 % 5.1-10.4 N EOSINOPHIL % (test code = EO%) 0.8 % 0.1-3.0 N BASOPHIL % (test code = BA%) 0.4 % 0.1-1.0 N NEUTROPHIL # (test code = NT#) 5.1 K/mm3 LYMPHOCYTE # (test code = LY#) 2.2 K/mm3 MONOCYTE # (test code = MO#) 0.5 K/mm3 EOSINOPHIL # (test code = EO#) 0.06 K/mm3 BASOPHIL # (test code = BA#) 0.0 K/mm3 RBC MORPHOLOGY REQUIRED (test code NORMAL NORMAL = RBCM) PLATELET MORPHOLOGY REQUIRED (test NORMAL NORMAL code = PLTMR) UA RFLX MICR CULT IF [id number] 18:39:00 Test Item Value Reference Range Interpretation Comments UA COLOR (test code = YELLOW YELLOW COLU) UA APPEARANCE (test code Slightly-Cloudy CLEAR = APPU) UA GLUCOSE DIPSTICK (test NEGATIVE NEG code = DGLUU) UA BILIRUBIN DIPSTICK NEGATIVE NEG (test code = BILU) UA KETONE DIPSTICK (test NEGATIVE NEG code = KETU) UA SPECIFIC GRAVITY (test 1.024 1.001-1.035 N code = SGU) UA BLOOD DIPSTICK (test 3+ NEG A code = JOVAN) UA PH DIPSTICK (test code 6.0 5-9 = EARL) UA PROTEIN DIPSTICK (test NEGATIVE NEG code = PROU) UA UROBILINIOGEN DIPSTICK NEGATIVE mg/dL NEG (test code = URO) UA NITRITE DIPSTICK (test NEG NEG code = CAROLE) UA LEUKOCYTE ESTERASE NEG NEG DIPSTICK (test code = LEUU) UA WBC (test code = WBCU) 3-5 #/hpf NONE SEEN A UA RBC (test code = RBCU) TOO NUMEROUS TO CNT NONE SEEN A #/hpf UA EPITHELIAL CELLS (test RARE #/HPF RARE-FEW code = EPIU) UA MUCUS (test code = RARE NONE SEEN MUCU) Indication for culture: Dysuria/FrequencyCHEMISTRY MISCELLANEOUS [id number] 09:31:00 Test Item Value Reference Range Interpretation Comments CHEMISTRY TEST (test code = FAX TESTC) CHEMISTRY TEST RESULT (test code RESULT TO = RESULTC) CHEMISTRY TEST REF RANGE (test [phone] code = REFC) CHEMISTRY TEST UNITS (test code @ 01/26/19 = UNITC) ANORAPRODUCTS OF [id number] 12:24:00 RUN DATE: 01/12/19 [facility] PAGE 1 RUN TIME: 1424 Specimen Inquiry RUN USER: INTERFACE --PATIENT: FLORIDA AYALA LOC: JOSE R U #: [id number] AGE/SX: 28/F ROOM: RE01/08/19REG DR: Corbin Howard MD : [birth year] BED: DIS: STATUS: [facility] TLOC: SPEC #: [id number] RECD: 01/08/19 STATUS:KRISTEL LO #: [id number] RUTH: 01/08/19- SUBM DR: Corbin Howard MD ENTERED: 01/11/19 SP TYPE: POC[ OTHR DR: ORDERED: LEVEL IV/2 CODES: [id number] - VAGINA, NOS [id number] - ENDOMETRIUM, NO PROCEDURES: LEV EL IV (Incomplete) TISSUES: ENDOMETRIUM, NOS - POC VAGINA, NOS - VAGINAL LESION BIOPSY CLINICAL HISTORY 28 year old, missed (kr) FINAL DIAGNOSIS Products of conception, curettage: - products of conception (villi, membranes, implantation site), decidua, and gestational endometrium Vaginal lesion, biopsy: - fibroepithelial polyp, no dysplasia identified Tissue code 1 CPT code(s): 87829, 91329bvd 01/12/19 GROSS DESCRIPTION ANATOMIC SOURCE OF TISSUE (per Requisition): 1. Products of conception 2. Vaginal lesion biopsy Each specimen is labeled with the patient's name and medical record number. Specimen #1 is designated "products of conception" and consists of a 7.0 x 7.0 x 0.8 cm aggregate of multiple arthur-red, focally hemorrhagic, soft, rubbery and slightly papilliferous tissues admixed with clotted blood. There are no parts. [employer]ing Rec[employer]iter sections are submitted labeled A1 and A2. Specimen #2 is designated "vaginal lesion biopsy" and consists of a 1.5 x 0.8 x 0.4 cm arthur- pink, firm,polypoid skin excised to a depth of less than 0.1 cm. The CONTINUED ON NEXT PAGE RU N DATE: 01/12/19 [facility] PAGE 2 RUN TIME: 1424 Specimen Inquiry RUN USER: INTERFACE SPEC #: [id number] PATIENT: FLORIDA AYALA #[id number] (Continued) GROSS DESCRIPTION (Continued) cut surfaces are pink- white, firm and fibrotic. The specimen is inked, trisected, and submitted in toto labeled B1. doug/richar 01/11/19 @ 0905 MICROSCOPIC DESCRIPTION Specimen #1, products of conception: The specimen consists of placental villi, membranes, decidua, gestational endometrium, and implantation site. The villi are edematous, but without cisterns, circumferential trophoblastic proliferation, scalloping or inclusions. No parts identified. Specimen #2, vaginal lesion: There is a polypoid fragment of skin covered with unremarkable squamous epithelium. [facility] 01/12/19 Signed Rut Orellana MD 01/12/19 1224 -------- ---- END OF REPORT CBC W/AUTO [id number] 13:03:00 Test Item Value Reference Range Interpretation Comments WHITE BLOOD CELL (test code = WBC) 5.4 K/mm3 6.6-12.1 L RED BLOOD CELL (test code = RBC) 4.41 M/mm3 3.45-5.01 N HEMOGLOBIN (test code = HGB) 13.7 g/dL 10.7-13.9 N HEMATOCRIT (test code = HCT) 38.6 % 32.1-42.1 N MEAN CELL VOLUME (test code = MCV) 88 fL 84.1-94.8 N MEAN CELL HGB (test code = MCH) 31.1 pg 27-35 N MEAN CELL HGB CONCETRATION (test 35.5 gm/dL 32.2-34.1 H code = MCHC) RED CELL DISTRIBUTION WIDTH (test 11.9 % 12.4-16.5 L code = RDW) PLATELET COUNT (test code = PLT) 257 K/mm3 133-385 N IMMATURE PLATELET FRACTION (test 0.0 % 0.0-10.8 N code = IPF) MEAN PLATELET VOLUME (test code = 9.3 fl 9.1-12.7 N MPV) NEUTROPHIL % (test code = NT%) 60.2 % 56.5-79.4 N LYMPHOCYTE % (test code = LY%) 31.6 % 14.3-34.3 N MONOCYTE % (test code = MO%) 6.5 % 5.1-10.4 N EOSINOPHIL % (test code = EO%) 0.9 % 0.1-3.0 N BASOPHIL % (test code = BA%) 0.4 % 0.1-1.0 N NEUTROPHIL # (test code = NT#) 3.2 K/mm3 LYMPHOCYTE # (test code = LY#) 1.7 K/mm3 MONOCYTE # (test code = MO#) 0.4 K/mm3 EOSINOPHIL # (test code = EO#) 0.05 K/mm3 BASOPHIL # (test code = BA#) 0.0 K/mm3 RBC MORPHOLOGY REQUIRED (test code NORMAL NORMAL = RBCM) PLATELET MORPHOLOGY REQUIRED (test NORMAL NORMAL code = PLTMR) URINALYSIS [id number] 13:02:00 Test Item Value Reference Range Interpretation Comments UA COLOR (test code = COLU) YELLOW YELLOW UA APPEARANCE (test code = Slightly-Cloudy CLEAR APPU) UA GLUCOSE DIPSTICK (test NEGATIVE NEG code = DGLUU) UA BILIRUBIN DIPSTICK (test NEGATIVE NEG code = BILU) UA KETONE DIPSTICK (test code NEGATIVE NEG = KETU) UA SPECIFIC GRAVITY (test 1.024 1.001-1.035 N code = SGU) UA BLOOD DIPSTICK (test code 2+ NEG A = JOVAN) UA PH DIPSTICK (test code = 6.0 5-9 EARL) UA PROTEIN DIPSTICK (test NEGATIVE NEG code = PROU) UA UROBILINIOGEN DIPSTICK NEGATIVE mg/dL NEG (test code = URO) UA NITRITE DIPSTICK (test NEG NEG code = CAROLE) UA LEUKOCYTE ESTERASE TRACE NEG A DIPSTICK (test code = LEUU) UA WBC (test code = WBCU) 6-10 #/hpf NONE SEEN A UA RBC (test code = RBCU) 3-5 #/hpf NONE SEEN A UA EPITHELIAL CELLS (test MODERATE #/HPF RARE-FEW A code = EPIU) UA BACTERIA (test code = RARE /HPF RARE-FEW BACU) UA MUCUS (test code = MUCU) 2+ NONE SEEN URINE SAMPLE: CLEAN CATCH
[2022-07-20 15:28] LABS: SARS-COV-2 RT PCR NEGATIVE (NEGATIVE)
--- NOTE | 2022-07-20 15:50 | EDPHYS ---
Physician Documentation [facility] Name: Marry Ascencio Age: 31 yrs Sex: Female : 1990 Arrival Date: 07/20/2022 Time: 14: Bed 11 Private MD: ED Physician Dean Marroquin HPI: 07/20 14:37 This 31 yrs old Female presents to ER via Ambulatory with complaints of Flu jmm Symptoms. 14:37 The patient or guardian reports cough. Onset: The symptoms/episode began/occurred jmm gradually, 5 day(s) ago. Modifying factors: The symptoms are alleviated by nothing. the symptoms are aggravated by nothing. Associated signs and symptoms: Pertinent positives: sore throat, Pertinent negatives: fever. This is a 31 year old female with no chronic abdominal pain that presents to the ED with complaints of sore throat, diarrhea, cough, congestion beginning approx 5 days ago. Denies vomiting. . 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 Last tetanus immunization: up to date. - Social history:: Smoking status: Patient denies any tobacco usage or history of. ROS: 14:37 Constitutional: Positive for fatigue. jmm 14:37 Respiratory: Positive for cough. 14:37 All other systems are negative. Exam: 14:37 Constitutional: This is a well developed, well nourished patient who is awake, alert, jmm and in no acute distress. Head/Face: atraumatic. Eyes: EOMI, no conjunctival erythema appreciated 14:37 Neck: Trachea midline, Supple Chest/axilla: Normal chest wall appearance and motion. Cardiovascular: Regular rate and rhythm. No edema appreciated Respiratory: Normal respirations, no respiratory distress appreciated Abdomen/GI: Non distended Back: Normal ROM Skin: General appearance color normal MS/ Extremity: Moves all extremities, no obvious deformities appreciated, no edema noted to the lower extremities Neuro: Awake and alert Psych: Behavior is normal, Mood is normal, Patient is cooperative and pleasant 14:37 ENT: Posterior pharynx: erythema, that is moderate. Vital Signs: 14:38 BP 112 / 82; Pulse 96; Resp 20; Temp 98.8; Pulse Ox 100% ; Weight 54.43 kg; Height 5 kb3 ft. 1 in. (154.94 cm); Pain 5/10; 14:38 Body Mass Index 22.67 (54.43 kg, 154.94 cm) kb3 MDM: 14:37 Patient medically screened. [facility] 15:47 Data reviewed: vital signs, nurses notes. Counseling: I had a detailed discussion with maggie the patient and/or guardian regarding: the historical points, exam findings, and any diagnostic results supporting the discharge/admit diagnosis, the need for outpatient follow up, to return to the emergency department if symptoms worsen or persist or if there are any questions or concerns that arise at home. ED course: Patient is alert and non toxic in appearance in the ED. No signs of resp distress. patient advised to follow up with pcp and otherwise given strict return precautions. patient understood and agrees with the plan of care. . 07/20 14:38 Order name: COVID-19/FLU A+B; Complete Time: 15:37 [facility] 07/20 14:38 Order name: Strep; Complete Time: 15:01 [facility] 07/20 15:02 Order name: Throat Culture EDMS Administered Medications: No medications were administered Disposition: 17:20 Co-signature as Attending Physician, Dean GASTELUM was immediately available on-site ms3 in the Emergency Department for consultation in the care of the patient. Disposition Summary: 07/20/22 15:49 Discharge Ordered Location: Home [facility] Condition: Stable [facility] Diagnosis - Influenza [facility] Followup: [facility] - With: Private Physician - When: 2 - 3 days - Reason: Recheck today's complaints, Continuance of care, Re-evaluation by your physician Discharge Instructions: - Discharge Summary Sheet [facility] - Influenza, Adult [facility] Forms: - Medication Reconciliation Form [facility] - Thank You Letter [facility] - Antibiotic Education [facility] - Prescription Opioid Use [facility] Prescriptions: - Bromfed DM 2-30-10 mg/5 mL Oral syrup - take 5 milliliter by ORAL route every 4 hours As needed; 200 milliliter; [facility] Refills: 0, Product Selection Permitted - Tamiflu 75 mg Oral Capsule - take 1 tablet by ORAL route every 12 hours for 5 days; 10 tablet; Refills: 0, jmm Product Selection Permitted Signatures: Dispatcher [employer] Shadi Valdez PA PA jmm Sims, Marcus, DO DO ms3 Trena Rojo, RN RN kb3
--- NOTE | 2022-07-20 15:50 | ER ---
Nurse's Notes [facility] Name: Marry Ascencio Age: 31 yrs Sex: Female : 1990 Arrival Date: 07/20/2022 Time: : Bed 11 Private MD: Diagnosis: Influenza Presentation: 07/20 14:38 Chief complaint: Patient states: cough, congestion, runny nose, fever, sore throat x5 kb3 days. Coronavirus screen: Vaccine status: Patient reports being unvaccinated. Client denies travel out of the [place] in the last 14 days. Ebola Screen: Patient negative for fever greater than or equal to 101.5 degrees Fahrenheit, and additional compatible Ebola Virus Disease symptoms Patient denies exposure to infectious person. Patient denies travel to an Ebola-affected area in the 21 days before illness onset. Initial Sepsis Screen: Does the patient meet any 2 criteria? No. Patient's initial sepsis screen is negative. Does the patient have a suspected source of infection? No. Patient's initial sepsis screen is negative. Risk Assessment: Do you want to hurt yourself or someone else? Patient reports no desire to harm self or others. Onset of symptoms was July 15, 2022. 14:38 Method Of Arrival: Ambulatory kb3 14:38 Acuity: STEPHANIE 4 kb3 Triage Assessment: 14:39 General: Appears in no apparent distress. Behavior is calm, cooperative. Pain: kb3 Complains of pain in head, left aspect of posterior pharynx and right aspect of posterior pharynx Pain does not radiate. Pain currently is 5 out of 10 on a pain scale. EENT: Throat is clear is pink. 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 Last tetanus immunization: up to date. - Social history:: Smoking status: Patient denies any tobacco usage or history of. Screenin:45 Abuse screen: Denies threats or abuse. Denies injuries from another. Nutritional jl7 screening: No deficits noted. Tuberculosis screening: No symptoms or risk factors identified. Fall Risk None identified. Assessment: 14:45 General: See triage note. jl7 16:00 General: PT to room 11 for discharge instructions. jl7 Vital Signs: 14:38 BP 112 / 82; Pulse 96; Resp 20; Temp 98.8; Pulse Ox 100% ; Weight 54.43 kg; Height 5 kb3 ft. 1 in. (154.94 cm); Pain 5/10; 14:38 Body Mass Index 22.67 (54.43 kg, 154.94 cm) kb3 ED Course: 14:26 Patient arrived in ED. as 14:27 Shadi Regalado PA is PHCP. [facility] 14:27 Dean Marroquin DO is Attending Physician. jmm 14:39 Triage completed. kb3 14:39 Arm band placed on right wrist. kb3 14:45 Patient has correct armband on for positive identification. jl7 14:45 Strep Sent. kb3 14:45 COVID-19/FLU A+B Sent. kb3 14:45 No provider procedures requiring assistance completed. Patient did not have IV access jl7 during this emergency room visit. 16:09 Cathy Fam, RN is Primary Nurse. jl7 Administered Medications: No medications were administered Medication: 14:45 VIS not applicable for this client. jl7 Outcome: 15:49 Discharge ordered by . [facility] 16:20 Discharged to home ambulatory. jl7 16:20 Condition: stable 16:20 Discharge instructions given to patient, Instructed on discharge instructions, follow up and referral plans. medication usage, Demonstrated understanding of instructions, follow-up care, medications, Prescriptions given X 3. 16:21 Patient left the ED. jl7 Signatures: Shadi Regalado PA PA jmm Martinez, Amelia as Cathy Fam, RN RN jl7 Trena Rojo, RN RN kb3
[2022-07-20 16:31] VITALS: BP 112/82; TEMP 98.8; O2SAT 100
== END 2022-07-20 16:21 | disposition home or self-care (01) ==
LOC: ER 14:21
DX: J11.1 Influenza due to unidentified influenza virus with other respiratory manifestations (principal); Z20.822 Contact with and (suspected) exposure to COVID-19
CPT/HCPCS: 87070; 87081; 0240U; 99283

== ENCOUNTER 2023-07-16 17:51 | Emergency (ER) | payer SELFPAY ==
--- OUTSIDE RECORDS SUMMARY | 2023-07-16 17:54 | XMS REPORT | Continuity of Care Document ---
:1990 Author Organization [facility] t Address [address] [place] [address] Care Team Providers Name Role Phone Corbin Briscoe Attending Clinician Unavailable Lexa Attending Clinician Unavailable Dalia Shaw Attending Clinician Unavailable Jesu Andino Attending Clinician Unavailable Queenie Ren Attending Clinician Unavailable Zheng Alonso Attending Clinician Physician, No Primary or Family Admitting Clinician UnavailRoselia Sweeney Admitting Clinician Unavailable Corbin Briscoe Admitting Clinician Unavailable Lexa Admitting Clinician Unavailable Payers Payer Name Policy [...] of [place] No Known DA Active U 0 [facility] [place] No Known DA Active U 0 [facility] [place] No Known DA Active U 2016-08 [facility] 09[facility] [place] No Known DA Active U 2016-08 [facility] 1[facility]16 [facility] 00 l [facility] No Known No Known Active Memori a Medicati Medicati l on on Gordon Allergabri Morales s s Social History Smoking Status Start Date Stop Date Source Social History [facility] Medications Ordered Filled Start Stop Current Ordering Indication Dosage Frequency Signature Comments Components Source Medication Medication Date Date Medication? Clinician (SIG) Name Name Ciprofloxac Yes 500 mg = 1 Memoria in 500 MG 3-05 tab, PO, l Oral Tablet 20:09: Q12H, X 7 H ermann [Cipro] 00 day, # 14 tab, 0 Refill(s), Pharmacy: [facility] Ciprofloxac Yes 500 mg = 1 Memoria in 500 MG 3-05 tab, PO, l Oral Tablet 20:09: Q12H, X 7 H ermann [Cipro] 00 day, # 14 tab, 0 Refill(s), [facility] Ciprofloxac Yes 500 mg = 1 Memoria in 500 MG 3-05 tab, PO, l Oral Tablet 20:09: Q12H, X 7 H ermann [Cipro] 00 day, # 14 tab, 0 Refill(s), [facility] Ciprofloxac Yes 500 mg = 1 Memoria in 500 MG 3-05 tab, PO, l Oral Tablet 20:09: Q12H, X 7 H ermann [Cipro] 00 day, # 14 tab, 0 Refill(s), [facility] Ondansetron Yes 4 mg = 1 Me moria 4 MG 3-05 tab, PO, l Disintegrat 20:08: TID, PRN He rmann ing Tablet 00 Nausea / Vomiting, Dissolve tab under tongue, # 15 tab, 0 Refill(s), [facility] Ondansetron Yes 4 mg = 1 Me moria 4 MG 3-05 tab, PO, l Disintegrat 20:08: TID, PRN He rmann ing Tablet 00 Nausea / Vomiting, Dissolve tab under tongue, # 15 tab, 0 Refill(s), [facility] Ondansetron 2019 Yes 4 mg = 1 Me moria 4 MG 3-05 tab, PO, l Disintegrat 20:08: TID, PRN He rmann ing Tablet 00 Nausea / Vomiting, Dissolve tab under tongue, # 15 tab, 0 Refill(s), Pharmacy: [facility] [place] [address] Ondansetron Yes 4 mg = 1 Me moria 4 MG 3-05 tab, PO, l Disintegrat 20:08: TID, PRN He rmann ing Tablet 00 Nausea / Vomiting, Dissolve tab under tongue, # 15 tab, 0 Refill(s), Pharmacy: [facility] [employer] [place] [address] Azo-Cranber Yes 0 Memori a ry 3-05 Refill(s) l 19:27: [place] Azo-Cranber 2018-0 Yes 0 Memori a ry 3-05 Refill(s) l 19:27: [place] Azo-Cranber 2018-0 Yes 0 Memori a ry 3-05 Refill(s) l 19:27: [place] Azo-Cranber 2018-0 Yes 0 Memori a ry 3-05 Refill(s) l 19:27: [place] meclizine No 25 mg = 1 Mem oria 25 mg oral 1-29 tab, PO, l tablet 14:38: TID, PRN [place] 00 for dizziness, X 10 day, # 30 tab, 1 Refill(s), Pharmacy: [facility] [place] [address] meclizine No 25 mg = 1 Mem oria 25 mg oral 1-29 tab, PO, l tablet 14:38: TID, PRN [place] 00 for dizziness, X 10 day, # 30 tab, 1 Refill(s), Pharmacy: [facility] [place] [address] meclizine No 25 mg = 1 Mem oria 25 mg oral 1-29 tab, PO, l tablet 14:38: TID, PRN [place] 00 for dizziness, X 10 day, # 30 tab, 1 Refill(s), Pharmacy: [facility] [employer] [place] [address] meclizine No 25 mg = 1 Mem oria 25 mg oral 1-29 tab, PO, l tablet 14:38: TID, PRN Gordon 00 for dizziness, X 10 day, # 30 tab, 1 Refill(s), Pharmacy: [id number] Vital Signs Vital Name Observation Time Observation Value Comments Source Height 2018-10-27 19:25:00 154.94 cm [facility] Heart Rate 2018-10-27 19:25:00 [facility] [place] Temperature Oral (F) 2018-10-27 19:25:00 98.6 F [facility] Systolic (mm Hg) 2018-10-27 19:25:00 [place] rial [place] Diastolic (mm Hg) 2018-10-27 19:25:00 Mem orial [place] Weight 2018-10-27 19:25:00 [facility] BMI Calculated 2018-10-27 19:25:00 Memori al Gordon BMI Calculated 2018-09-22 13:59:00 Memori al Gordon Weight 2018-09-22 13:59:00 [facility] Height 2018-09-22 13:59:00 154.94 cm [facility] Heart Rate 2018-09-22 13:59:00 [facility] [place] Systolic (mm Hg) 2018-09-22 13:59:00 [place]son rial Gordon Diastolic (mm Hg) 2018-09-22 13:59:00 Mem orial [place] Temperature Oral (F) 2018-09-22 13:59:00 98.0 F [facility] Procedures Procedure Date / Time Performed Performing Clinician Noah carlos [id number] 2021-02-22 00:00:00 [facility] Miscarriage [facility] [place] Encounters Start End Encounter Admission Attending Care Care Encounter Source Date/Time Date/Time Type Type Clinicians Facility Department ID 2020-10-18 [facility]patient [facility] RADI [id number] [facility] 13:00:00 Corbin [id number] [facility] 2020-10-06 Inpatient [facility] RADI [id number] [facility] 07:00:00 Corbin [id number] [facility] 2020-09-28 [facility] RADI [id number] [facility] 10:00:00 Corbin [facility] 2020-07-10 Inpatient [facility] GIANLUCA [id number] [facility] 19:04:00 [id number] [facility] [place] 2019-12-09 Inpatient [facility] GIANLUCA [id number] [facility] 21:12:00 [id number] [facility] [place] 2022-12-04 2022-12-04 Outpatient FOG_Burke_R AOSM AOSM [id number] Tabitha 00:00:00 00:00:00 Taylor [id number] [facility] 2022-12-02 2022-12-02 Emergency EM Colin, [facility] GIANLUCA [id number] [facility] 10:56:00 13:15:00 Dalia 14 [facility] [place] 2022-05-03 2022-05-04 Emergency EM Sina, [facility] GIANLUCA [id number] [facility] 20:47:00 02:39:00 Jesu 40 [facility] [place] 2022-04-26 2022-04-26 Emergency EM Ren, [facility] GIANLUCA [id number] [facility] 10:18:00 13:52:00 Queenie 29 [facility] [place] 2021-02-22 2021-02-24 Inpatient EM Maccato, [facility] OBPP [id number] [facility] 07:34:00 13:20:00 Corbin [id number] [facility] [place] 2021-02-12 2021-02-12 Emergency EM Maccato, [facility] ANA [id number] [facility] 15:35:00 16:50:00 Corbin [id number] [facility] [place] 2018-10-27 2018-10-28 Outpatient nullFlavo [facility] [id number] Memoria 20:15:00 05:59:59 r Primary 01 l [facility] 2018-10-27 2018-10-28 Outpatient nullFlavo [facility] [id number] Memoria 20:15:00 05:59:59 r Primary 01 l [facility] 2018-10-27 2018-10-27 Outpatient Elhor [facility] [id number] 14:15:00 23:59:59 Aki Dacosta 2018-10-27 2018-10-27 Outpatient MHIE MHIE [id number] Memoria 14:15:00 14:15:00 01 l Gordon 2018-09-22 2018-09-23 Outpatient nullFlavo [facility] [id number] Memoria 14:00:00 05:59:59 r Primary 00 l Teddy Elmore 2018-09-22 2018-09-23 Outpatient nullFlavo [facility] [id number] Memoria 14:00:00 05:59:59 r Primary 00 l Teddy [place] 2018-09-22 2018-09-22 Outpatient Elhor [facility] [id number] 08:00:00 23:59:59 Gbito, 00 Cauv 2018-09-22 2018-09-22 Outpatient Elhor [facility] [id number] 08:00:00 23:59:59 Gbito, 00 [facility] 2018-09-22 2018-09-[address] [facility] [id number] Memoria 08:00:00 08:00:00 00 l Gordon Results Test Description Test Time Test Comments Results Result [facility] e Comments - XR SCAPULA COMP 2022-12-02 RT 00:00:00 [facility] 1990 Sex: F Patient Name: FLORIDA AYALA Unit No: [id number] EXAMS: CPT CODE: [id number] [place] [id number] PROCEDURE INFORMATION: Exam: XR Right Scapula Exam date and time: 12/02/2022 11:41 AM Age: 32 years old Clinical indication: Pain; Shoulder; Right; R shoulder/scapula pain TECHNIQUE: Imaging protocol: Radiologic exam of the right scapula. Complete exam. Views: AP Oblique Lateral 3 views COMPARISON: DX XR CHEST 2 V 04/26/2022 12:16 PM FINDINGS: Bones/joints: No fracture, erosion or focal bone lesion is apparent. Soft tissues: No significant soft tissue abnormality. IMPRESSION: No acute finding. at 1225 Reported and signed by: Jaden Basurto MD CC: Dalia Shaw MD Technologist: Viry Reid, RT, [place] Trnscrbd D/ (1225) GCD.CPS Orig Print D/T: S: 12/02/2022 (3025) [facility] NAME: FLORIDA AYALA Radiology Department PHYS: PETCA. Dalia Shaw [address] : 1990 AGE: 32 SEX: F [place], [place] [address] LOC: ZI PHONE #: [phone] EXAM DATE: 12/02/2022 STATUS: REG ER FAX #: [phone] RAD NO: Page 1 Signed Report - XR SHOULDER 2 + 2022-12-02 V RT 00:00:00 [facility] 1990 Sex: F Patient Name: FLORIDA AYALA Unit No: [id number] EXAMS: CPT CODE: [id number] XR SHOULDER 2 + V RT 44645 PROCEDURE INFORMATION: Exam: XR Right Shoulder Exam date and time: 12/02/2022 11:41 AM Age: 32 years old Clinical indication: Pain; Shoulder; Right; Additional info: R shoulder/scapula pain TECHNIQUE: Imaging protocol: Radiologic exam of the right shoulder. Views: 2 or more views. COMPARISON: DX XR CHEST 2 V 04/26/2022 12:16 PM FINDINGS: Bones/joints: Focal dense calcification along the posterolateral contour of the greater tuberosity. Normal alignment with no fracture, focal bone lesion, erosive process or periosteal reaction. Joint spaces are normal. Soft tissues: No significant soft tissue abnormality. IMPRESSION: Focal dense calcification along the posterolateral contour of the greater tuberosity compatible with calcific rotator cuff tendinopathy. at 1226 Reported and signed by: Jaden Basurto MD CC: Dalia Shaw MD Technologist: Viry Reid, RT, [place] Trnscrbd D/ (1226) GCD.CPS Orig Print D/T: S: 12/02/2022 (1226) [facility] NAME: FLORIDA AYALA Radiology Department PHYS: PETCA. - Dalia Shaw [address] : 1990 AGE: 32 SEX: F [place], [place] [address] LOC: ZI PHONE #: [phone] EXAM DATE: 12/02/2022 STATUS: REG ER FAX #: [phone] RAD NO: Page 1 Signed Report COVID 19 Asymptomatic IH AG 2022-04-26 12:12:00 [...] detection and/or diagnosi s of COVID-19 under Aqzykor099(b)(1 ) of the Act, 21 U.S.C. 360bbb-3 (b)(1), unless theauthorizatio n is terminated or revoked sooner. DRUGS OF ABUSE [id number] 12:08:00 Test Item Value Reference Range Interpretation [...] = PHENCU) 25 ng/m L COMPREHENSIVE METABOLIC [id number] 12:05:00 Test Item Value Reference Range Interpretation [...] 79 units/L 46-116 N code = ALKP) [id number] 12:05:00 Test Item Value Reference Range Interpretation Comments TROPONIN-I (test <4.0 pg/mL <51.4 N Please Note :New method is code = TROPI) in use for tonja suring Troponin Aug 09 2021Units are pg/mL which differs from the prior testmethodology (ng/mL) by a factor of 100 0. D-DIMER [id number] 12:04:00 Test Item Value Reference Range Interpretation Comments D-DIMER QUANT 369 ng/mLDDU <255 H Reference Ra nge in (test code = : <570 DDIMER) ng/ml A positive test d oes not provide a defin itive diagnosis ofDVT and indicates the n eed for follow up clini kateryna studies. The pr edictive value of a nega tive test is 98% for rulingout DVT. CBC W/AUTO [id number] 11:52:00 Test Item Value Reference Range Interpretation [...] NORMAL NORMAL code = PLTMR) UR HCG [id number] 11:51:00 Test Item Value Reference Range Interpretation [...] later and tested. - DUP VEIN UNI [id number] 00:00:00 [facility] 1990 Sex: F Patient Name: FLORIDA AYALA Unit No: [id number] EXAMS: CPT CODE: [id number] [place] [address] PROCEDUREINFORMATION: Exam: US Duplex Left Lower Extremity Veins, [...] popliteal veins are patent without thrombus. Normal Doppler waveforms. Normal compressibility and/or augmentation response. Left superficial veins: Unremarkable.Saphenofemoral junction is patent without thrombus. Soft tissues: Unremarkable. IMPRESSION: No evidence of deep vein thrombosis. at 1308 Reported and signed by: Dalia Modi MD CC: Queenie Ren MD Technologist: Babita Murillo RDMSProbe: Trnscrbd D/ (8005) GCBhanu.CPS Orig Print D/T: S: 04/26/2022 (1308) [facility] NAME: FELIXANDERSONFLORIDA Radiology Department PHYS: Queenie Gunderson MD [address] : 1990 AGE: 31 SEX: F [place], [place] [address] LOC: JodiERS PHONE #: [phone] EXAM DATE: 04/26/2022 STATUS: REG ER FAX #: [phone] RAD NO: Page 1 Signed Report Patient Name: FLORIDA AYALA Unit No: [id number] EXAMS: CPT CODE: [id number] [place] [address] (Continued) [facility] NAME: FLORIDA AYALA Radiology Department PHYS: Queenie Gunderson MD[address] : 1990 AGE: 31 SEX: F [place], [place] [address] LOC: David.ERS PHONE #: [phone] EXAM DATE: 04/26/2022 STATUS: REG ER FAX #: [phone] RAD NO: Page 2 Signed Report- XR CHEST 2 [id number] 00:00:00 [facility] : 1990 Sex: F Patient Name: FLORIDA AYALA Unit No: [id number] EXAMS: CPT CODE: [id number] XR CHEST 2 V 23725 PROCEDURE INFORMATION: Exam: XR Chest Exam date and time: 04/26/2022 12:16 PM Age: 31 years old Clinical indication:Pain; Chest pressure; Prior surgery; Surgery date: <1 month; Surgery type: Breast augmentation 03/28/2022; Additional info: Chest pain TECHNIQUE: Imaging protocol: Radiologic exam of the chest. Views: 2 views. PA and Lateral COMPARISON: OT XR CHEST 1V 02/19/2018 10:09 PM FINDINGS: Lungs: The lungs are clear. Pleural spaces: Unremarkable. No pleural effusion. No pneumothorax. Heart/Mediastinum: The heart size is normal. The pulmonary vasculature is [...] findings at 1234 Reported and signed by: Lawanda Treadwell MD CC: Queenie Ren MD Technologist: Mickey Rosario, RT, CT Trnscrbd D/ (1674) GCD.CPS Orig Print D/T: S: 04/26/2022 (5365) [facility] NAME: FLORIDA AYALA Radiology Department PHYS: Queenie Gunderson MD [address] : 1990 AGE: 31SEX: F [place], [place] [address] LOC: ZI PHONE #: [phone] EXAM DATE: 04/26/2022 STATUS: REG ER FAX #: [phone] RAD NO: Page 1 Signed ReportHGB [id number] 12:13:00 Test Item Value Reference Range Interpretation Comments HEMOGLOBIN (test code = HGB) 11.2 g/dL 10.1-13.8 N HEMATOCRIT (test code = HCT) 32.3 % 32.5-41.8 L AG HEPATITIS B [id number] 05:41:00 Test Item Value Reference Range Interpretation Comments AG HEPATITIS B SURFACE (test code NONREACTIVE NONREACTIVE = HBSAG) IS CONSENT FORM SIGNED FOR HIV TESTING? YAB HEPATITIS C [id number] 05:41:00 Test Item Value Reference Range Interpretation Comments AB HEPATITIS C (test code = NONREACTIVE NONREACTIVE HCVAB) SIGNAL TO CUTOFF (test code = <0.02 <0.80 N CUTOFF) IS CONSENT FORM SIGNED FOR HIV TESTING? YAB [id number] 05:41:00 Test Item Value Reference Range Interpretation Comments AB TREPONEMA (test code = TREPAB) NONREACTIVE NONREACTIVE IS CONSENT FORM SIGNED FOR HIV TESTING? RD HIV 1 05:41:00 Test Item Value Reference Range Interpretation Comments AB HIV 1 2 (test NONREACTIVE NONREACTIVE [facility] code = [id number]) 4th Gen HIV Ag/Ab Combo Screen IS CONSENT FORM SIGNED FOR HIV TESTING? YAG HEPATITIS B [id number] 05:29:00 Test Item Value Reference Range Interpretation Comments AG HEPATITIS B SURFACE (test code NONREACTIVE NONREACTIVE = HBSAG) IS CONSENT FORM SIGNED FOR HIV TESTING? RD HEPATITIS C [id number] 05:29:00 Test Item Value Reference Range Interpretation Comments AB HEPATITIS C (test code = HCVAB) NONREACTIVE SIGNAL TO CUTOFF (test code = CUTOFF) <0.80 IS CONSENT FORM SIGNED FOR HIV TESTING? PARVINB [id number] 05:29:00 Test Item Value Reference Range Interpretation Comments AB TREPONEMA (test code = TREPAB) NONREACTIVE NONREACTIVE IS CONSENT FORM SIGNED FOR HIV TESTING? RD HIV 1 05:29:00 Test Item Value Reference Range Interpretation Comments AB HIV 1 2 (test code = [id number]) NONREACTIVE IS CONSENT FORM SIGNED FOR HIV TESTING? YCBC W/AUTO [id number] 04:24:00 Test Item Value Reference Range Interpretation [...] code = PLTMR) COVID 19 Asymptomatic IH [id number] 04:06:00 Test Item Value Reference Range Interpretation [...] under a CLIA Certificat e of Waiver, Certifi aleshia ofCompliance, o r Certificate of Accreditation. This test is only authori zed for the duration of thedeclaration that circumstances e xist justifying theauthorizatio n of emergency use o f in vitro diagnostic test sfor detection and/o r diagnosis of CO VID-19 under Ekemqjc17 4(b)(1) of the Act, 21 U.S .C. 360bbb-3(b)(1), unless theauthorizatio n is terminated or r evoked sooner. - US PREG AFTER [id number] 15:15:00 [facility] : 1990 Sex: F Patient Name: FLORIDA AYALA Unit No: [id number] EXAMS: CPT CODE: [id number] US PREG AFTER [address] [facility] [address], [place] [address] OBSTETRICAL ULTRASOUND REPORT Pat. Name: FLORIDA AYALA Pat. No: [id number] Study Date: 10/18/2020 1:26pm , Age: 14 1990, 30 Pregnancies: 6, Para 1, Ab 4 LMP: Unknown GA by US: 21w2d GA Selected: 22w2d (From Known E) JAYA: 02/19/2021 Referring MD: CORBIN BRISCOE Home Decorator: Jorge Dickens RDMS CPT4: [id number] Admitting MD: CORBIN BRISCOE Hist/Ind: SCAN 1 ANATOMY SCAN MEASUREMENTS AGE GROWTH EVALUATION Measurement GA Range Srce %for GA Ratios ----- ---- ------- BPD 4.8 cm 20w4d (58z2u-74g5v) Hadl BPD <05 FL/BPD 0.79 HC 18.8 cm 21w0d (90q0u-97d0a) Hadl HC 13% FL/AC 0.22 (0.20 - 0.24) APD 5.6 cm APD HC/AC 1.07 (1.04 - 1.23) TAD 5.6 cm TAD CI 0.74 (0.70 - 0.86) AC 17.6 cm 22w2d (20w2d- 24w2d) Hadl AC 50% FL 3.8 cm 21w5d (65i1t-15n5h) Hadl FL 39% HL 3.5 cm 22w0d (12c9o-95d1b) Jesu HL 46% GA for sonogram 21w2d (82y8d-87j2y) Weight Estimate: based on (BPD,HC,AC,FL) Hadlock Weight: 479 gm (409-549) Hadlock : 1lb s, 0oz Normal: 500 gm (334-940) Aditya Wt% [...] A CLEFT PALATE INVOLVING THE UPPER [facility] NAME: FLORIDA AYALA Radiology Department PHYS: Corbin Bar MD [address] : 1990 AGE: 30 SEX: David [place], [place] [address] LOC: KEYONNA PHONE #: [phone] EXAM DATE: 10/18/2020 STATUS: REG CLI FAX #: [phone] RAD NO: Page 1 Signed Report (CONTINUED) Patient Name: FLORIDA AYALA Unit No: [id number] EXAMS: CPT CODE: [id number] US PREG AFTER 1ST TRI 91973 (Continued) PALATE. Placental location: Posterior Placental maturity : Grade 1 There isno evidence of placenta previa. Amniotic fluid volume is normal. Thank you for allowing us to participate in the care of this patient. FINDINGS DISCUSSED WITH DR BRISCOE. Lawanda Treadwell M.D. ------ Electronic Signature 10/18/2020 03:15pm at 1515 Reported and signed by: Lawanda Treadwell MD CC: Technologist: Jorge Dickens RDMS Probe: Trnscrbd D/ (3612) [email or web address] Orig Print D/T: S: 10/18/2020 (2213) [facility] NAME: FLORIDA AYALA Radiology Department PHYS: Corbin Bar MD [address] : 1990 AGE: 30 SEX: F [place] [address] LOC: David.RAD PHONE #: [phone] EXAM DATE: 10/18/2020 STATUS: REG CLI FAX #: [phone] RAD NO: Page 2 Signed Report Patient Name: FLORIDA AYALA Unit No: [id number] EXAMS: CPT CODE: [id number] US PREG AFTER 1ST TRI 21019 (Continued) [facility] NAME: FLORIDA AYALA Radiology Department PHYS: Corbin Bar MD [address] : 1990 AGE: 30 SEX: F [place], [place] [address] LOC: F.RAD PHONE #: [phone] EXAM DATE: 10/18/2020 STATUS: REG CLI FAX #: [phone] RAD NO: Page 3 Signed ReportUA RFLX MICR CULT IF [id number] 19:55:00 Test Item Value Reference Range Interpretation [...] Suprapubic PainSpecimen Description: CLEAN CATCH COMPREHENSIVE METABOLIC [id number] 19:53:00 Test Item Value Reference Range Interpretation [...] 46-116 N code = ALKP) CBC W/AUTO [id number] 19:34:00 Test Item Value Reference Range Interpretation [...] (test NORMAL NORMAL code = PLTMR) HCG [id number] 22:26:00 Test Item Value Reference Range Interpretation [...] SHOULD BE CONSI DERED NEGATIVE HCG SERUM [id number] 21:52:00 Test Item Value Reference Range Interpretation Comments HCG SERUM QUAL (test code = HCGQL) NEGATIVE CHEMISTRY 7 [id number] 21:51:00 Test Item Value Reference Range Interpretation [...] CA) 8.8 mg/dL 8.4-10.2 N UR HCG [id number] 21:49:00 Test Item Value Reference Range Interpretation Comments UR HCG QUAL (test NEGATIVE RESULTS VE RIFIED BY REPEAT code = HCGQLU) ANALYSIS1. Ve ry dilute urine specimens , as indicated by a lowspecific gravity, may no t contain member service representative levels ofhCG. 2. False negative results may occ ur when the levels of hCGar e below the sensitivity lev el of the test. If pregna ncy is still suspected, a fi rst morningurine sp ecimen should be colle cted 48 hours later and tested. UA RFLX MICR CULT IF [id number] 21:47:00 Test Item Value Reference Range Interpretation [...] MUCU) Indication for culture: Suprapubic PainCBC W/AUTO [id number] 21:37:00 Test Item Value Reference Range Interpretation [...] (test NORMAL NORMAL code = PLTMR) HCG [id number] 20:09:00 Test Item Value Reference Range Interpretation [...] BE CONSI DERED NEGATIVE - US TRANSVAGINAL [id number] 20:08:00 Patient Name: FLORIDA AYALA Unit No: [id number] EXAMS: CPT CODE: [id number] US TRANSVAGINAL W/PELVIS 78642 TRANSABDOMINAL AND TRANSVAGINAL OBSTETRICAL PELVIC ULTRASOUND INDICATION: [...] collection. There is no intrauterine or extrauterine gestationdetected. The right ovary measures 2.1 x 1.6 [...] extrauterine gestation detected. The findings could [facility] NAME: FLORIDA AYALA Radiology DepartmentPHYS: Jamie Anna MD [address] : 1990 AGE: 28 SEX: F [place], [place] [address] LOC: ZI PHONE #: [phone] EXAM DATE: 06/20/2019 STATUS: REG ER FAX #: [phone] RAD NO: Page 1 Signed Report (CONTINUED) Patient Name: FLORIDA AYALA Unit No: [id number] EXAMS: CPT CODE: [id number] US TRANSVAGINAL W/PELVIS 26901 (Continued) be secondary to spontaneous expulsion of products, hidden ectopic or very early . Close clinical correlationis recommended. Consider short-term follow-up ultrasound and beta [...] to evaluate further. Ovarian protocol unenhanced and contrast-enh anced MRI could also be considered, but is not advised at this potential early gestational age. at 2007 Reported and signed by: Paul Lema DO CC: Jamie Floyd MD Technologist: Carlita Nelson [facility] [[email or web address]] Probe: [id number] Trnscrbd D/ (2007) t.[email or web address] Orig Print D/T: S: 06/20/2019 (2011) [facility] NAME: FLORIDA AYALA Radiology Department PHYS: Jamie Anna MD [address] : 1990 AGE: 28 SEX: F [place] [address] LOC: JodiERS PHONE #: [phone] EXAM DATE: 06/20/2019 STATUS: REG ER FAX #: [phone] RAD NO: Page 2 Signed Report Patient Name: FLORIDA AYALA Unit No: [id number] EXAMS: CPT CODE: [id number] US TRANSVAGINAL W/PELVIS 00439 (Continued) [facility] NAME: FLORIDA AYALA Radiology Department PHYS: Jamie Anna MD [address] : 1990 AGE: 28 SEX: F [place] [address] LOC: David.ERS PHONE #: [phone] EXAM DATE: 06/20/2019 STATUS: REG ER FAX #: [phone] RAD NO: Page 3 Signed Report- US PELVIS [id number] 20:08:00 Patient Name: FLORIDA AYALA Unit No: [id number] EXAMS: CPT CODE: [id number] US PELVIS COMPLETE [id number] AND TRANSVAGINAL OBSTETRICAL PELVIC ULTRASOUND INDICATION: 6 [...] extrauterine gestation detected. The findings could [facility] NAME: FLORIDA AYALA Radiology Department PHYS: Jamie Anna MD [address] : 1990 AGE: 28 SEX: F [place] [address] LOC: JodiERS PHONE #: [phone] EXAM DATE: 06/20/2019 STATUS: REG ER FAX #: [phone] RAD NO: Page 1 Signed Report (CONTINUED) Patient Name: FLORIDA AYALA Unit No: [id number] EXAMS: CPT CODE: [id number] US PELVIS COMPLETE 14825 (Continued) be secondary to spontaneous expulsion of [...] and signed by: Paul Lema DO CC:Jamie Flody MD; Corbin Briscoe Technologist: Carlita Nelson RDMS Probe: Trnscrbd D/ (2007) [id number] Orig Print D/T: S: 06/20/2019 (2011) [facility] NAME:LUCYFLORIDA Radiology Department PHYS: Jamie Anna MD [address] : 1990 AGE: 28 SEX: F [place], [place] [address] LOC: JodiERS PHONE #: [phone] EXAM DATE: 06/20/2019 STATUS: REG ER FAX #: [phone] RAD NO: Page 2 Signed Report Patient Name: FLORIDA AYALA Unit No: [id number] EXAMS: CPT CODE: [id number] US PELVIS COMPLETE 35427 (Continued) [facility] NAME: FELIXANDERSONFLORIDA Radiology Department PHYS: Jamie Anna MD [address] : 1990 AGE: 28 SEX: F [place], [place] [address] LOC: ZI PHONE #: [phone] EXAM DATE: 06/20/2019 STATUS: REG ER FAX #: [phone] RAD NO: Page 3 Signed Report COMPREHENSIVE METABOLIC [id number] 19:40:00 Test Item Value Reference Range Interpretation [...] 46-116 N code = ALKP) CBC W/AUTO [id number] 18:50:00 Test Item Value Reference Range Interpretation [...] = PLTMR) UA RFLX MICR CULT IF [id number] 18:39:00 Test Item Value Reference Range Interpretation [...] SEEN MUCU) Indication for culture: Dysuria/FrequencyCHEMISTRY MISCELLANEOUS [id number] 09:31:00 Test Item Value Reference Range Interpretation Comments CHEMISTRY TEST (test code = FAX TESTC) CHEMISTRY TEST RESULT (test code RESULT TO = RESULTC) CHEMISTRY TEST REF RANGE (test [id number] code = REFC) CHEMISTRY TEST UNITS (test code @ 01/26/19 = UNITC) ANORAPRODUCTS OF [id number] 12:24:00 RUN DATE: 01/12/19 [facility] PAGE 1 RUN TIME: 1424 Specimen Inquiry RUN USER: INTERFACE --PATIENT: FLORIDA AYALA LOC: JOSE R U #: [id number] AGE/SX: 28/ ROOM: RE01/08/19REG DR: Corbin Briscoe MD : [birth year] BED: DIS: STATUS: [facility] TLOC: SPEC #: [id number] RECD: 01/08/19 STATUS:[facility] #: [id number] RUTH: 01/08/19- SUBM DR: Corbin Briscoe MD ENTERED: 01/11/19 SP TYPE: POC[ OTHR DR: ORDERED: LEVEL IV/2 CODES: R29384 - VAGINA, NOS W37840 - ENDOMETRIUM, NO PROCEDURES: LEV EL IV (Incomplete) TISSUES: ENDOMETRIUM, NOS - POC VAGINA, NOS - VAGINAL LESION BIOPSY CLINICAL HISTORY 28 year old, missed (kr) FINAL DIAGNOSIS Products of conception, curettage: - products of conception (villi, membranes, implantation site), decidua, and gestational endometrium Vaginal lesion, biopsy: - fibroepithelial polyp, no dysplasia identified Tissue code 1 CPT code(s): 89263, 50253ihn 01/12/19 GROSS DESCRIPTION ANATOMIC SOURCE OF TISSUE [...] with clotted blood. There are no parts. Practical Nurse sections are submitted labeled A1 and A2. Specimen #2 is designated "vaginal lesion biopsy" and consists of a 1.5 x 0.8 x 0.4 cm arthur- pink, firm,polypoid skin excised to a depth of less than 0.1 cm. The CONTINUED ON NEXT PAGE R UN DATE: 01/12/19 [facility] PAGE 2 RUN TIME: 1424 Specimen Inquiry RUN USER: INTERFACE SPEC #: [id number] PATIENT:FLORIDA AYALA #[id number] (Continued) GROSS DESCRIPTION (Continued) cut surfaces are pink-white, firm and fibrotic. The specimen is inked, [...] of skin covered with unremarkable squamous epithelium. [facility] 01/12/19 Signed Rut Orellana MD 01/12/19 1224 ------ ------ END OF REPORT CBC W/AUTO [id number] 13:03:00 Test Item Value Reference Range Interpretation [...] (test NORMAL NORMAL code = PLTMR) URINALYSIS [id number] 13:02:00 Test Item Value Reference Range Interpretation [...] 2+ NONE SEEN URINE SAMPLE: CLEAN CATCH Notes Date/Time Note Provider Source 2022-12-02 11:07:00 [id number]:07:00 [facility] ([facility])EMERGENCY PROVIDER REPORTREPORT#:[id number] REPORT STATUS: SignedDATE:12/02/22 TIME: 110 PATIENT: FLORIDA AYALA UNIT #: [id number]#: [id number] ROOM/BED:AGE: 32 SEX: F PCP PHYS: Corbin Briscoe MDSERVICE AUTHOR : Dalia Shaw MD * ALL edits or amendments must be made on the electronic/computer document * HPI-Should/Arm Prob/Inj Free Text HPI NotesFre e Text HPI Vlnzx25rd HF without significant PMH p/ w right shoulder pain x4 days. Progressively worsening; associated with right upper back/scapular pain. No relief with ibuprofen and lidocaine patch. Denies preceding fall. GeneralInitial Greet Date/Time 12/02/22 1107 PresentationChief Complaint Shoulder pain R, Shoulder dec ROM RHx Obtained From Patient Revie w of Systems ROS StatementsAll systems rev neg except as marked. Focused Review of SystemsConstitutionalDenies: Chills, Fever, Lethargy. MusculoskeletalReports: Extremity pain , Extremity swelling, Joint pain, Joint swelling. SkinDenies: Abrasion, Laceration. NeurologicDenies: Focal weakness, Numbness. Past Medical History - AdultStated Complaint NT PREG,R.SHOULDER PAIN,BLOOD IN STOOLAllergiesCode d Allergies:No Known Allergies (04/26/22) Home MedicationsActive ScriptsSULFAMETHOXAZOLE/TMP (BACTRIM DS 800/160 MG) 1 TAB PO Q12H SULFAMETHOXAZOLE/TMP (BACTRIM DS 800/160 MG) 1 TAB PO Q12H #20 TABS Prov: 05/04/22IBUPROFEN (ADVIL) 400 MG PO Q4H PRN PRN PAIN/FEVER IBUPROFEN (ADVIL) 400 MG PO Q4H PRN PRN PAIN/FEVER #30 TABS Prov: 05/04/22 Reported Medications[ARNICA] 5 TAB PO DAILY [HEAL FAST] 2 CAP PO BID Additional Medical HistoryEctopic Physical Exam Vital SignsVital SignsFirst Documented: Result Date Time Pulse O x 99 12/02 1117 B/P 122/79 12/02 1117 B/P Mean 93 12/02 111 O2 Delivery Room air 12/02 1116 Temp 98.0 12/02 111 Pulse 83 12/02 111 Resp 17 04 0 1117 Last Documented: Result Date Time Pulse Ox 98 12/02 1314 Temp 98.4 12/02 1314 Pulse 78 12/02 1315 Resp 18 12/02 1315 B/P 122/79 12/02 1117 B/P Mean 93 12/02 111 O2 Delivery Room ai r 12/02 111 Review of Vital Signs Reviewed, Vital signs normal Focused PEGeneral/Const General/Const Awake, Alert, Well appearingMS Nec k Neck Supple, Full range of motion, No swelling, Non-tenderResp/Chest Respiratory/Chest Breath sounds NL, Breath sounds = bilat, No respiratory distress, No rales, No rhonchi, No wheezingCardiovascular Cardiovascular Heart rate NL, Regular rhythm, Heart sounds NL, Peripheral circulation NLMS Upper Extrem Upper Extremity/MS Atraumatic, Full range of motion, N o swelling, No erythema, No deformity, Neurologic intact, Vascular intact Right Shoulder Swelling present, Tenderness present, ROM reduced. Skin Skin Color NL, Warm, Dry, Intact, Turgor NL, No swellingNeurologic Neurologic Oriented X3, Speec h NL, No motor deficits, No sensory deficits Interpretation Diagnostics Lab Results InterpretationResultsRecent Impressions:RADIOLOG Y - XR SHOULDER 2 + V RT 12/02 1200 Report Impression - Status: SIGNED Entered: 12/02/2022 1226 IMPRESSION: Focal dense calcification along the posterolateral contour of the greater tuberosity compatible with calcific rotator cuff tendinopathy.Impression By: CAITLIN NapolesADIOLOGY - XR SCAPULA COMP RT 12/02 1200 Report Impression - Status: SIGNED Entered: 12/02/2022 1225 IMPRESSION: No acute finding.Impression By: Lexie Basurto MD Imaging StatementRadiographic studies reviewe d and considered in the medical decision-making. Re-Evaluation MDM Free Text MDM NotesFree Text MDM NotesA/P: 32yo AAF with PMH as above p/w R shoulder pain1. XRs2. PainADDENDUMTime: 1250XR c/w rotater cuff tendonitis. Pt re-assessed; symptoms improved. Results of work-up d/w Pt; voiced understanding. Ok for DC home with PCP follow-up ED CourseMedication(s) OrderedMedication(s) Ordered:Central Nervous System Agents Sig/Ji Start time Last Medicatio n Dose Route Stop Time Status Admin Acetaminophen/ 2 TAB X1ED STA 12/02 1134 DC 12/02 Codeine Phosphate PO 12/02 1135 1223 Patient Discharge Departure Vital Signs/ConditionVital SignsFirst Documented: Result Date Time Pulse Ox 99 / 1117 B/P 122/79 04/ 1117 B/P Mean 93 04/10 111 7 O2 Delivery Room air 12/02 1117 Temp 98.0 / 1117 Pulse 83 04/ 1117 Resp 17 12/02 1117 Las t Documented: Result Date Time Pulse Ox 98 12/02 1315 Temp 98.4 12/02 1315 Pulse 78 / 1315 Resp 18 12/02 1315 B/P 122/79 04/ 1117 B/P Mean 93 /10 1117 O2 Delivery Room air 12/02 1117 All vital signs available at the time of this entry have been reviewed. Clinical ImpressionClinical ImpressionPrimary Impression: Right rotator cuff tendinitisSecondary Impressions: Right shoulder pain Disposition DecisionDischarge )( Discharged to Home Yes )( Time 1250 )( Date 12/02/22 Discharge/Care PlanCounseled Regarding Diagnosis, Imaging studies, Prescriptions, Need for follow-up, When to return to ED(Auto) PrescriptionsCurrent Visit ScriptsACETAMINOPHEN/CODEINE (TYLENOL WITH CODEINE #3 300/30 MG) 1 TAB PO Q4H PRN PRN ACUTE PAIN ACETAMINOPHEN/CODEINE (TYLENOL WITH CODEINE #3 300/30 MG) 1 TAB PO Q4H PRN PRN ACUTE PAIN #1 5 TABS methylPREDNISolone (MEDROL 4 MG DOSEPAK) 4 MG PO ASDIR methylPREDNISolone (MEDROL 4 MG DOSEPAK) 4 MG PO ASDIR #1 PACKET CYCLOBENZAPRINE (FLEXERIL) 10 MG PO Q8H PRN PRN MUSCLE SPASMS/PAIN CYCLOBENZAPRINE (FLEXERIL) 10 MG PO Q8H PRN PRN MUSCLE SPASMS/PAIN #15 TABS Patient Instructions Rotator Cuff TendonitisReferralsProvider Referral: Rebecca Carrillo MD Notes: Orthopedics Address: [address] [place] [address] [address] [place] [address] Discharge NoteI have spoken with the patient and/or caregivers. I have explained the patient'scondition, diagnoses and treatment plan based on the information available to meat this time. I have answered the patient's and/or caregiver's questions and addressed any concerns . The patient and/or caregivers have as good an understanding of the patient's diagnosis, condition and treatment plan as can beexpected a t this point. The vital signs have been stable. Th e patient's condition is stable and appropriate fo r discharge from the emergency department. The patient will pursue further outpatient evaluatio n with the primary care physician or other designated or consulting physician as outlined i n the discharge instructions. The patient and/or caregivers are agreeable to this planof care and follow-up instructions have been explained in detail. The patient and/or caregivers have received these instructions in written format an d have expressed an understanding of the discharge instructions. The patient and/or caregivers are aware that any significant change in condition o r worsening of symptoms should prompt an immediate return to this or the closest emergency department or a call to 911. Extremity Inj Discharge NoteThe patient is discharged home wit h supportive care, a plan for pain control, and follow-up instructions that detail what to expec t over the next 48 hours andwhat symptoms should prompt immediate return to the ED, including the symptoms of compartment syndrome. Follow-up instructions have been explained in detail tothe patient, and the instructions have been provided in written format. The patient is comfortable with the plan of care and has expressed an understanding of the discharge instructions. The patient is aware that any significant change in condition or worsening of symptoms should prompt an immediate call to the primary or designated physician. If that is not successful the patient should call or return to this or the closest emergency department or call 911. at 0815RPT #:[id number] OF REPORTEmerveterans health care system of the ozarks [id number]:07:00F.[id number] a ilable for patient [id number]:15:33 2022-05-03 23:45:00 [id number]:45:00 [facility] ([facility])EMERGENCY PROVIDER REPORTREPORT#:[id number] REPORT STATUS: SignedDATE:05/03/22 TIME: 2344 PATIENT: FLORIDA AYALA UNIT #: [id number]#: [id number] ROOM/BED:AGE: 31 SEX: F PCP PHYS: Corbin Briscoe MDSERVICE AUTHOR : Jesu Andino MD * ALL edits or amendments must be made on the electronic/computer document * HPI-General Illness Free Text HPI NotesFree Text HPI Notes31 yrs old female s/p breast implant in [place] months ago c/o left breast pain, open wound, suture expose on the 6 o'clock position. No fever. GeneralConfirmed Patient YesPatient Type New patientInitial Greet Date/Time 05/03/222046 PresentationChief Complaint s/p breast implant, open wound, suture expose, breast pain/tenderness.Hx Obtained From PatientSudden in Onset? YesOnset Occurred Today, Days agoSymptom Duration Since onsetProgression since Onset Gradually worseningCaused by s/p breast amplantLocation Chest, breast pain/tendernessQuality AchingSeverity: Onset Tobias n level 4 out of 10Severity: Current Pain level 5 out of 10Associated withReports: Itching, Pain. Associated Other Pt denies other symptomsExacerbated by Moving affected area ContextImmunization Status General All up to dateRecent Healthcare Recent doctor visit, Recen t testingSimilar Sx Previous Yes Review of Systems ROS StatementsAll systems rev neg except as marked.Complete sys rev neg except as marked. Review of SystemsSkinReports: Itching (breast pain, open wound). Past Medical History - AdultStated Complaint BREAST AUGMANETATION,RT BREAST LOOKS INFECTED,NPAllergiesCoded Allergies:No Known Allergies (04/26/22) Home MedicationsReported Medications[ARNICA] 5 TAB PO DAILY [HEAL FAST] 2 CAP PO BID Review of Nursing Notes Rev avail, and agreeAdditional Medical HistoryEctopic pregnancySmoking status for patients 13 years old or older: Never Smoker Physical Exam Vital SignsVital SignsFirst Documented: Result Date Time Pulse Ox 100 05/03 2047 B/P 137/85 05/03 2047 B/P Mean 102 05/03 2047 O2 Delivery Room air 05/03 2047 Temp 36.8 05/03 2047 Pulse 84 05/03 2047 Resp 17 05/03 204 7 Last Documented: Result Date Time Pulse Ox 100 05/04 223 B/P 128/75 05/04 223 B/P Mean 92 05/04 223 O2 Delivery Room air 05/04 223 Temp 36.8 05/04 223 Pulse 85 05/04 223 Resp 18 04/25 0 0223 Review of Vital Signs Reviewed Physical ExamGeneral/Const General/Const Awake, Alert, Well appearingMS Head Head NormocephalicEars/Nose/Throat Ears/Nose/Throat Airway patent, Mucous membranes moist, Pharynx NLMS Neck Neck Supple, No meningismus, Full rang e of motion, No swelling, Non-tender, No massesResp/Chest Respiratory/Chest Breath sounds NL, Breath sounds = bilat, No respiratory distress, No rales, No rhonchi, No wheezing Text/Dict Notess/p breast amplant, right breast/underneath/6'oclock position with sutures expose causing irriation to the skin, erosion.Cardiovascular Cardiovascular Heart rate NL, Regular rhythm, Heart sounds NL, Cap refill notdelayed, Peripheral circulation NLAbdomen/GI Abdomen/GI Soft, Non-tender, No guarding, No reboundLymphatic Lymphatic No gross adenopathyMS Upper Extrem Upper Extremity/MS Inspection NL, N o swelling, Non-tender, No erythema, No deformity, Neurologic intact, Vascular intact, No clubbing/cyanosisMS Lower Extrem Lower Ext/Pelvis/MS Inspection NL, No swelling, Non-tender, No erythema, No deformity, Neurologi c intact, Vascular intact, No edemaSkin Skin Color NL, Warm, Dry, Turgor NLNeurologic Neurologic Oriented X3, Speech NL, No motor deficits, No sensory deficitsPsychiatric Psychiatric Affect NL, Mood NL, Thought content NL Interpretation Diagnostics Lab Results InterpretationResultsMicrobiology: Date/Time Procedure - Status Source Growth 05/03 2100 Woun d Culture - RES ABSCESS COAG NEG STAPHYLOCOCCUS 05/03 2100 Gram Stain - RES ABSCESS Re-Evaluation [facility] ED CourseMedication(s) OrderedMedication(s) Ordered:Anti-Infective Agents Sig/Ji Start time Last Medication Dose Route Stop Time Status Admin Trimethoprim/ 1 TAB X1ED STA 05/046 DC Sulfamethoxazole PO 05/04 147 Central Nervous System Agents Sig/Ji Start time Last Medication Dose Route Stop Time Status Admin Ibuprofen 600 MG X1ED STA 05/04 0148 AC P O 05/04 149 Patient Discharge Departure Vital Signs/ConditionVital SignsFirst Documented: Result Date Time Pulse Ox 100 05/03 2047 B/P 137/85 05/03 2047 B/P Mean 102 05/03 2047 O2 Delivery Room air 05/03 2047 Temp 36.8 05/03 204 7 Pulse 84 05/03 2047 Resp 17 05/03 2047 Last Documented: Result Date Time Pulse Ox 100 05/04 0223 B/P 128/75 05/04 223 B/P Mean 92 05/04 223 O2 Delivery Room air 05/04 223 Temp 36.8 05/04 223 Pulse 85 05/04 223 Resp 18 05/04 022 3 All vital signs available at the time of this entry have been reviewed. Condition Stable, Improved Clinical ImpressionClinical ImpressionPrimary Impression: Breast painSecondary Impressions: Breast implant status , Suture check, Suture of skin wound, Suture reactionTime of Impression 2358 Disposition DecisionDischarge )( Discharged to Home Yes )( Time 235 )( Date 05/03/22 Discharge/Care PlanCounseled Regarding Diagnosis, Lab results, Imaging studies, Prescriptions, Needfor follow-up, When to return to EDRx Drug Database Reviewed Yes(Auto) PrescriptionsCurrent Visit ScriptsSULFAMETHOXAZOLE/TMP (BACTRIM DS 800/160 MG) 1 TAB PO Q12H SULFAMETHOXAZOLE/TMP (BACTRIM DS 800/160 MG) 1 TAB PO Q12H #20 TABS UNTIL FINISHED IBUPROFEN (ADVIL) 400 MG PO Q4H PRN PRN PAIN/FEVER IBUPROFEN (ADVIL) 400 MG PO Q4H PRN PRN PAIN/FEVER #30 TABS Prescriptions Reviewed Risks, Benefits, Alternative treatmentPatient Instructions ED Cellulitis, ED Post Op Wound Check, Infection, ED Post Op Wound Check, Pain, ED Wound CareReferralsProvider Referral: Susu Curry MD Address: [address] [place] [address] Provider Referral: Yanely Higgins MD Address: [address] [place] [address] Provider Referral: Denys Esposito MD Address: [address] [place] [address] Departure FormsWORK/SCHOO L EXCUSE VARIABLEWORK/SCHOOL EXCUSE-CAREGIVERWORK/SCHOOL EXCUSE-CAREGIVER 2Advance Care Planning Documents Reviewed With patient Discharge NoteI have spoken with the patient and/or caregivers. I have explained the patient'scondition, diagnoses and treatment plan based on the information available to meat this time. I have answered the patient's and/or caregiver's questions and addressed any concerns . The patient and/or caregivers have as good an understanding of the patient's diagnosis, condition and treatment plan as can beexpected a t this point. The vital signs have been stable. Th e patient's condition is stable and appropriate fo r discharge from the emergency department. The patient will pursue further outpatient evaluatio n with the primary care physician or other designated or consulting physician as outlined i n the discharge instructions. The patient and/or caregivers are agreeable to this planof care and follow-up instructions have been explained in detail. The patient and/or caregivers have received these instructions in written format an d have expressed an understanding of the discharge instructions. The patient and/or caregivers are aware that any significant change in condition o r worsening of symptoms should prompt an immediate return to this or the closest emergency department or a call to 911. Quality MeasuresBP F/U for HTN F/u with PCP/other docPreg Test for Women w/Abd Pain Female age 14-50Smoking Cessation Screened, non userTobacco Screening/Cessation 18 years or older, Denies tobacco use at 2352RPT #:[id number] OF REPORTEDEmerriver valley medical center department [id number]:45:00F.[id number] a ilable for patient [id number]:53:01 2022-04-26 12:57:00 [id number]:57:00 [facility] ([facility])emergency provider reportreport#:[id number] report status: signeddate:04/26/22 time: 1257 patient: florida ayala unit #: [id number]#: [id number] room/bed:age: 31 sex: f pcp phys: corbin briscoe dt: 04/26/22 author : queenie ren md * all edits or amendments must be made on the electronic/computer document * hpi-general illness generalinitial greet date/time 04/26/22 1021 presentationchief complaint __ (chest pain, leg pain)hx obtained from patient free text hpi notesfree text hpi -rrdh-axu female 1 month status post abdominoplasty, breast lift and augmentation, an d bbl presents with left leg pain and right arm pain x3 days. patient states she had an episode of chest tightness and shortness of breath yesterday that is currently resolved. patient is concerned because she had a lower extremity dvt in 2016 during . she was not anticoagulated prophylactically for her recent surgical procedure. patient has been following with her plastic surgeon and he has no concerns about any of her surgical wounds. patient denies fever, cough, leg swelling, or drainage from any of her surgical wounds. patient describes the left leg pain as starting from the posterior kne e and radiating down to the ankle and is described as a soreness and becomes a sharp "shooting pain " when ambulating. review of systems ros statementsall systems rev neg except as marked. review of systemsconstitutionaldenies: fever. respiratoryreports: shortness of breath (resolved). denies: cough, non-productive, cough , productive. cardiovascularreports: chest pain (resolved). gireports: abdominal pain (improving post op). denies: nausea, vomiting. gu femaledenies: dysuria, flank pain, . musculoskeletalreports: extremity pain. denies: back pain, extremity swelling. skindenies: rash, swelling. neurologicdenies: headache. psychiatricdenies: change mental status, confusion. past medical history - adultstated complaint nt preg,l. leg pain,l. arm pain,chest tightnessallergiescoded allergies:no known allergies (04/26/22) home medicationsdiscontinue d scriptstramadol (ultram) 50 mg po q6h prn prn acute pain tramadol (ultram) 50 mg po q6h prn pr n acute pain #20 tabs prov: 02/24/21 dc: 04/26/22 1105 therapy completed reported medications[arnica] 5 tab po daily [heal fast] 2 cap po bid discontinued reported medicationspnv with fe fumarate/fa () 1 tab po daily physical exam vital signsvital signsfirst documented: result date time pulse ox 99 04/26 1028 b/p 125/79 04/26 1028 b/p mean 94 04/26 102 8 o2 delivery room air 04/26 1028 temp 97.7 04/26 1028 pulse 78 04/26 1028 resp 18 04/26 1028 last documented: result date time pulse ox 99 04/26 1228 b/p 122/75 04/26 1228 b/p mean 90 04/26 122 8 o2 delivery room air 04/26 1228 temp 97.8 04/26 1228 pulse 76 04/26 1228 resp 18 04/26 1228 review of vital signs reviewed physical examgeneral/const general/const awake, alert, no acute distress, well appearing, well developed, well hydrated, well nourished, cooperative, not toxic appearingms head head atraumatic, normocephalicears/nose/throat ears/nose/throat atraumatic, airway patent, mucous membranes moist, pharynx nlms neck neck atraumatic, supple , no meningismus, full range of motion, no adenopathy,no swelling, non-tenderresp/chest respiratory/chest atraumatic, breath sounds nl, breath sounds = bilat, no respiratory distress, no rales, no rhonchi, no wheezing, no retractions, no stridor chest wall/ribs negative : chest tender upper r, chest tender upper l, ches t tender lower r, chest tender lower l, chest tender lateral r, chest tender lateral l, chondral cartil tender r, costochond cart tender r, costochond cart tender l, rib tender nondeformed r, rib tender w/deformity r, rib tender nondeformed l, rib tender w/deformity l, sternum tender. cardiovascular cardiovascular heart rate nl, regular rhythm, heart sounds nl, no gallop, no murmurs, no rubsabdomen/gi abdomen/gi atraumatic, soft text/dict noteswell-appearing lower abdominal abdominoplasty incision wound that is clean, dry,intact without any signs of infection or dehiscence; mild lower abdominal tendernessms back back atraumatic, inspection nl, no cva tendernessms upper extrem upper extremity/ms atraumatic, inspection nlms lower extrem lower ext/pelvis/ms atraumatic, inspection nl, full range of motion, no swelling, non-tender, no erythema, no deformity, neurologic intact, vascular intact, no edema, gait nl, pelvis stable, pelvis non-tenderms ankle/foot ankle/betty t atraumatic, inspection nl, full range of motion, no swelling, no erythema, non-tender, no deformity, neurologic intact, no [place] skin color nl, no rash, warm, dry, intact, turgor nl, no swellingneurologic neurologic oriented x3, speech nl, cn ii - xii intact, gait nlpsychiatri c psychiatric affect nl, mood nl interpretation diagnostics lab results interpretationresultslaboratory tests 04/26/22 1125:[embedded image not available]laboratory tests: 04/26 04/26 04/26 1130 1125 1100 chemistry sodium (135 - 145 meq/l) 139 potassium (3.5 - 5.0 meq/l) 4.4 chloride (100 - 115 meq/l) 104 carbon dioxide (22 - 31 meq/l) 28 anion gap (10 - 20) 11.30 bun (7 - 18 mg/dl) 12 creatinin e (0.5 - 1.0 mg/dl) 0.7 glomerular filtr rate (>60 ml/min) 99 glucose (65 - 110 mg/dl) 91 calcium (8.4 - 10.2 mg/dl) 8.9 total bilirubin (0.2 - 1. 0 mg/dl) 0.8 ast (15 - 37 units/l) 19 alt (12 - 7 8 units/l) 25 total alk phosphatase (46 - 116 units/l) 79 troponin i (<51.4 pg/ml) <4.0 total protein (6.3 - 8.2 gm/dl) 6.9 albumin (3.4 - 4.8 gm/dl) 3.8 coagulation d-dimer (<255 ng/mlddu) 369 h hematology wbc (6.5 - 12.3 k/mm3) 4.4 l rb c (3.51 - 4.69 m/mm3) 3.77 hgb (10.1 - 13.8 g/dl) 11.9 hct (32.5 - 41.8 %) 34.5 mcv (84.6 - 96.6 fl) 91.5 mch (27.3 - 33.9 pg) 31.6 mchc (32.0 - 34.2 gm/dl) 34.5 h rdw (12.2 - 16.3 %) 13.2 plt count (134 - 363 k/mm3) 234 mpv (9.2 - 12.7 fl) 9.0 l neut % (auto) (57.9 - 77.3 %) 58.6 lymph % (auto) (14.5 - 29.7 %) 29.6 mono % (auto) (3.6 - 10.2 %) 8.7 eos % (auto) (0.0 - 3.0 %) 2.1 baso % (auto) (0.1 - 0.9 %) 0.5 neut # (auto) (k/mm3) 2.6 lymph # (auto) (k/mm3) 1.3 mono # (auto) (k/mm3) 0.4 eos # (auto) (k/mm3) 0.09 baso # (auto) (k/mm3) 0.0 serology sars-cov-2 ag (rapid ) (negative) negative toxicology urine opiates screen (negative) negative ur barbiturates, qual (negative) negative ur phencyclidine scrn (negative) negative ur amphetamines screen (negative) negative u benzodiazepines scrn (negative) negative urine cocaine screen (negative) negative urine cannabinoids (negative ) negative urines urine hcg, qual negative recent impressions:radiology - xr chest 2 v 04/26 1215 report impression - status: signed entered: 04/26/2022 1235 impression: no acute cardiopulmonary findings impression by: [email or web address] - lawanda treadwell mdultisraelound - dup vein uni lt 04/26 1232 report impression - status: signed entered: 04/26/2022 1308 impression: no evidence of deep vein thrombosis. impression by: marsha modi md ec g #1 interpretationdate 04/26/22time 1030interpreted by and reviewed by me, ed physiciannl ecg interpretation normal rate, normal sinus rhythm, no acute ischemic changes, no stemi, normal qrs, normal st waves, normal t waves, normal axis, normal intervals, adequate tracingrate 75 patient discharge departure vital signs/conditionvital signsfirst documented: result date time pulse ox 99 04/26 1028 b/p 125/79 04/26 1028 b/p mean 94 04/26 1028 o2 delivery room air 04/26 1028 temp 97.7 04/26 1028 pulse 78 / 1028 resp 18 04/26 1028 last documented: result date time pulse ox 99 04/26 1228 b/p 122/75 04/26 1228 b/p mean 90 04/26 122 8 o2 delivery room air 04/26 1228 temp 97.8 04/26 1228 pulse 76 04/26 1228 resp 18 04/26 1228 all vital signs available at the time of this entry have been reviewed. condition stable, improved clinical impressionclinical impressionprimary impression: leg pain, leftsecondary impressions: chest pain, right arm paintime of impression 131 6 disposition decisiondischarge )( discharged to home yes )( time 1316 )( date 04/26/22 discharge/care plancounseled regarding diagnosis , lab results, imaging studies, need for follow-up,when to return to edpatient instructions ed musculoskeletal pain gcdv, low back leg pain causesreferralsresource referral: [facility] follow-up: call for appointment address: [address] [place] [id number] discharge notei have spoken with the patient and/or caregivers. i have explained the patient'scondition, diagnoses and treatment plan based on the information availabl e to desiree this time. i have answered the patient's and/or caregiver's questions and addressed any concerns. the patient and/or caregivers have as good an understanding of the patient's diagnosis , condition and treatment plan as can beexpected a t this point. the vital signs have been stable. th e patient's condition is stable and appropriate fo r discharge from the emergency department. the patient will pursue further outpatient evaluatio n with the primary care physician or other designated or consulting physician as outlined i n the discharge instructions. the patient and/or caregivers are agreeable to this planof care and follow-up instructions have been explained in detail. the patient and/or caregivers have received these instructions in written format an d have expressed an understanding of the discharge instructions. the patient and/or caregivers are aware that any significant change in condition o r worsening of symptoms should prompt an immediate return to this or the closest emergency department or a call to 911. electronically signed by queenie ren md on 04/26/22 at 8387rpt #:[id number] of reportEDEmerprovidence mission [facility] department qchxbc1150-03-90C39:57:00F.[id number] a ilable for patient fbxiNBKURIDSTOUHWQ0482-17-01D83:18:21 2022-04-26 10:30:00 [id number]:30:[id number] [place] [address] patient name: florida ayala admit date: 04/26/22account no: [id number] room no: age: 31 sex: f admitting physician: attending physician: queenie ren md order:[id number] reason : chest pain test date/time stamp:friapr 26 2022 10:30:28blood pressure : / mmhgvent. rate : 075 bpm atrial rate : 075 bpm p-r int : 132 ms qrs dur : 072 ms qt int : 368 m s p-r-t axes : 032 057 038 degrees qtc int : 410 m s normal sinus rhythm with sinus arrhythmianormal ecg confirmed by moreno lee ([id number]) on 04/28/2022 9:26:56 pm referred by: self referred confirmed by:moreno lee electronically signed by moreno lee md on 04/28/22 at 2126 patient name: florida ayala .[id number] AVAvailable for patient amsqFHRGBGLCRMVPVS3668-10-41C20:27:20 2021-02-24 09:11:00 [id number]:11:00 [facility] ([facility])OB Disch PostpartumREPORT#:[id number] REPORT STATUS: SignedDATE:02/24/21 TIME: 910 PATIENT: FLORIDA AYALA UNIT #: [id number]#: [id number] [address] [birth year] AGE : 30 SEX: F ATTEND: Corbin Briscoe [facility] AUTHOR: Corbin Briscoe MD * ALL edits or amendments must be made on the electronic/computer document * Subjective SubjectiveAdmission EGA: Weeks: 40 Days: 6EGA at delivery (wks/days): 40 weeksStatus/day: post , Day 2Patient reports: Patient reports: Yes: normal lochia, pain management effective, tolerating po well, voiding well, voiding withou t pain, tolerating ambulation, flatus. No: complaints. Objective GeneralVS:Vital Signs Edy e Time Temp Pulse Resp B/P B/P Pulse O2 O2 Flow FiO2 Mean Ox Delivery Rate 02/23 2347 98.5 87 18 109/71 02/23 1437 97.9 92 18 104/68 02/22 1614 98.7 92 18 112/65 02/22 1029 81.0 02/22 1029 90 117/58 02/22 1015 74.0 02/22 1015 86 113/52 07/0 1 0959 88.0 02/22 0959 93 125/62 02/22 0945 80.0 02/22 0945 88 111/57 02/22 0929 81.0 02/22 0929 85 115/59 02/22 0914 86.0 02/22 0914 90 121/62 Laboratory Tests: 02/23 1144 Hematology Hgb (10. 1 - 13.8 g/dL) 11.2 Hct (32.5 - 41.8 %) 32.3 L Vital Signs Date Temp Pulse Resp B/P B/P Mean Pulse Ox FiO2 02/23 97.9-98.5 87-92 18 104-109/- Last Documented: Result Date Time B/P 02/23 Temp 98.5 02/23 2347 Puls e 87 02/23 2347 Resp 18 02/23 2347 B/P Mean 81.0 02/22 1029 PATIENT WEIGHT: Weight (lb): Weight (oz): Weight (kg): 68.309402Wzbmwmk soft, non tender, moderate lochia, firm fundus Discharge Summary GeneralAssessment: nml progressDate of admission:Date of admission: 02/22/21 Admission diagnosis: labor-spontaneous, labor-termHospital course: spontaneous labor, spontaneous vag delivery, epidural anesthesia, nml postop/postpart careProcedures: epidural anesthesia, spontaneous vaginal delivDischarge condition: stableDischarge to: Home/Self CareDischarge diagnosis: full-term uncomp deliveryBaby A: Vaginal delivery: spontaneous status: live born Gender: female 1 minute: 8 5 minutes: 9Nursing data:The edy a set between the solid lines has been imported from nursing documentation. Any exceptions have been noted below under Provider comments. _ Delivery date A: 02/22/21 Delivery time infant A: 0822Birthweight (gm) infant A: 3140Feeding preference: Gender infant A: FemaleApgar 1 minut e infant A: 9Apgar 5 minutes A: 9Apgar 10 minutes A: _ Provider comments on imported nursing data: [] Plan: routine care, discharge today Discharge InstructionsInstructions: routine inst r sheet given, instr and warnings rev'dDiet: RegularActivity: No [place] for 6 WksAdditional discharge routines: Attending Follow-UpContraception discussed: abstinence for 4-6 weeks, will discuss at PP visitDischarge meds:Continue taking these medications:PNV WITH FE FUMARATE/FA () 1 EACH TAB 1 TABLET ORAL DAILY. Start taking the following new medications:traMADol (ULTRAM) 50 MG TAB 50 MILLIGRAM ORAL EVERY 6 HOURS NEEDED. as neede d for ACUTE PAIN Qty = 20 No Refills Prescriptions : e-prescribe Add'l Follow-up AppointmentsAttendin g Physician: Attending Physician: Corbin Briscoe MD Attending physician follow up timeframe: In 3-4 weeks at 0913 RPT #:[id number] OF REPORT OBObstetric idpn0348-19-47Z42:11:00F.[id number] l able for patient wftqODORTAVNLAHUSV1131-89-50G50:13:55 2021-02-23 08:00:00 YMueovcwoyk258563301732-93-56J96:00:00 [facility] ([facility])OB Postpart Progr NoteREPORT#:[id number] REPORT STATUS: SignedDATE:02/23/21 TIME: 08 PATIENT: FLORIDA AYALA UNIT #: [id number]#: [id number] [address] [birth year] AGE : 30 SEX: F ATTEND: Corbin Briscoe [facility] AUTHOR: Corbin Briscoe MD * ALL edits or amendments must be made on the electronic/computer document * Subjective SubjectiveAdmission EGA: Weeks: 40 Days: 6EGA at delivery (wks/days): 40 weeksStatus/day: post , Day 1Patient reports: Patient reports: Yes: normal lochia, pain management effective, tolerating po well, voiding well, voiding withou t pain, tolerating ambulation, flatus. No: complaints. Objective Nursing Documentation ReviewNursing data:Vital Signs Date Time Temp Pulse Resp B/P B/P Pulse O2 O2 Flow FiO2 Mean O x Delivery Rate 02/22 1614 98.7 92 18 112/65 07/01 1029 81.0 07/01 1029 90 117/58 07/01 1015 74.0 07/01 1015 86 113/52 07/01 0959 88.0 07/01 0959 93 125/62 07/01 0945 80.0 07/01 0945 88 111/57 07/01 0929 81.0 07/01 0929 85 115/59 07/01 0914 86.0 07/01 0914 90 121/62 07/01 0859 83.0 07/01 0859 91 121/60 07/01 0844 80.0 07/01 0844 100 117/65 07/01 0837 98.4 07/01 0837 79.0 07/01 083 7 97 143/55 07/01 0816 98.0 07/01 0816 100 129/85 07/01 0801 83.0 07/01 0801 94 126/58 07/01 0746 71.0 07/01 0746 84 99/55 07/01 0730 97.7 07/01 0730 91.0 07/01 0730 85 118/77 07/01 0716 97.0 07/01 0716 87 122/80 07/01 0659 77.0 07/01 0659 82 107/57 07/01 0644 75.0 07/01 0644 76 102/55 07/01 0630 91.0 07/01 0630 76 118/74 07/01 0627 97.9 07/01 0615 92.0 07/01 0615 71 118/77 07/01 0600 85.0 07/01 0600 80 116/65 07/01 0541 85.0 02/22 0541 75 113/67 02/22 0536 102.0 02/22 0536 88 136/83 02/22 0532 98.0 02/22 0532 76 124/80 02/22 0525 81.0 02/22 0525 72 109/65 02/22 0517 75.0 02/22 0517 78 104/53 02/22 0358 93.0 02/22 0358 98.0 82 123/75 02/22 0314 94.0 02/22 0314 98.3 96 16 127/75 The data set between the solid lines has been imported from nursing documentation. Any exceptions have been noted below under Provider comments. _ Feeding preference: Post hemorrhage risk score: Low Risk for Hemorrhage. _ Provider comments on imported nursing data: [] A b domen soft, non tender, moderate lochia, firm fundus Diagnosis, Assessment Plan Diagnosis, Assessment PlanAssessment: nml progressPlan: routine carePlan discussed with: patient, spouse/partner Electronically Signed by Corbin Briscoe MD 02/23/21 at 0801 RPT #:[id number] OF REPORT PRProgress Qbsc6334-68-13A23:00:00F.DJZP15442641-1525LTDufh l able for patient nbglXINDNSDTBWNGCV7405-05-47S70:01:34 2021-02-22 08:34:00 LNweswwexoa428164505943-55-39B56:34:00 [facility] ([facility])OB Delivery NoteREPORT#:[id number] REPORT STATUS: SignedDATE:02/22/21 TIME: 08 PATIENT: FLORIDA AYALA UNIT #: [id number]#: [id number] [facility] AGE: 30 SEX: F ATTEND: Corbin Briscoe MDADM AUTHOR: Corbin Briscoe MD * ALL edits or amendments must be made on the electronic/computer document * OB Delivery Nursing Documentation ReviewNursing data:The edy a set between the solid lines has been imported from nursing documentation. Any exceptions have been noted below under Provider comments. _ ROM date: ROM time: Membranes rupture method: Amniotic fluid color: Amniotic fluid amount: Steroids prior to arrival: Antibiotic prophylaxi s given: Post hemorrhage risk score: Low Risk for Hemorrhage. Delivery date infant A: Delivery time infant A: Birthweight (gm) A: Weight (lb) A: Weight (oz) infant A: Gender A: FemaleApgar 1 minute A: 5 minutes infant A: 10 minutes infan t A: Cord pH obtained A: Vacuum time infant A: Vacuum # pulls infant A: Vacuum # popoffs A: QBL at delivery: _ Provider comments on imported nursing data: [] Pre-deliveryGBS status: GBS status: negativeNewborn evaluation at delivery: NRP certified personnelAdmission EGA: Weeks: 40 Days : 6EGA at delivery (wks/days): 40 weeks Baby A InformationBaby A information Delivery date: 02/22/21 status: live born Wt of baby: not yet available Gender: female 1 minute: 8 5 minutes: 9 Presentation: vertexABG details Baby A Cord blood gases: not collectedNuchal cord Baby A Nuchal cord: yes (loose and reduced) Vaginal DeliveryVaginal delivery: Labor: augmented Medications/Devices used: oxytocin Vaginal delivery: spontaneous Amniotic fluid: clear Anesthesia type: epidural anesthesia Episiotomy: none Laceration repair: n o Placenta: spontaneous, intact Post delivery meds used: oxytocin Count: correct Mother's condition : mother stable 's condition: infant stable in roomLacerations: Perineal laceration(s): None High vaginal laceration: noExtraction details OV D performed: noShoulder dystocia present: no Blood Loss/DetailsBlood loss at delivery: <1000 mlEBL at delivery (ml's): 100 at 0839 RPT #:[id number] OF REPORT OBObstetric hnwz0203-90-74E14:34:00F.[id number] thomas able for patient lirwVHGEKFMZXRTXXY9376-89-75H70:39:51 2021-02-22 06:45:00 FDlnzfriahq698452781214-85-04E94:45:00 [facility] ([facility])OB Admission / H PREPORT#:[id number] REPORT STATUS: SignedDATE:02/22/21 TIME: 0645 PATIENT: FLORIDA AYALA UNIT #: [id number]#: [id number] ROOM/BED:: 92 AGE: 30 SEX: F ATTEND: Corbin Briscoe DT: AUTHOR: Corbin Briscoe MD * ALL edits or amendments must be made on the electronic/computer document * OB HistoryChief complaint: uterine contractionsCurrent : Admission EGA (weeks) 40 Admission EGA (days) 6Notes:See dictated H and P #[id number] Past HistoryAdditional Medical History:Ectopic pregnancyAllergies:Coded Allergies:No Known Allergies (12/09/19) Electronically Signed by Corbin Briscoe MD o n 02/22/21 at 0646 RPT #:[id number] OF REPORT HPHistory and physical nkiygwwehtj0025-42-88W90:45:00F.[id number] 8 AVAvailable for patient giccLGTQOPCIIXFWBI0460-18-53F11:46:27 2021-02-22 06:40:00 [id number]:40:[id number] 068 [facility] [address] PATIENT NAME: FLORIDA AYALA ADMIT DATE: 02/22/21ACCOUNT NO: [id number] BROOK Aguilar NO: F.034 AGE: 30 SEX: F ADMITTING PHYSICIAN: Corbin Briscoe ATTENDING PHYSICIAN: Corbin Briscoe MD ADMISSION DATE: 02/22/2021 HISTORY OF PRESENT ILLNESS: The patient is a 30-year-old 6, para 1, AB4 with complaints of regular uterine contractions since the evening of02/21/2021. The patient reports good movement, no spontaneous rupture ofmembranes and no bleeding. The patient is group B strep negative and Rhpositive. has been otherwise uncomplicated. PAST MEDICAL HISTORY: Significant for a spontaneous vaginal delivery inFebruary of 2015. The patient has had an ectopic i n November of 2016,treated with laparoscopic excision . The patient had 3 spontaneous miscarriagesin 201 8 at 13 weeks after pyelonephritis, for which the patient underwent a Dand C. The patient then had a miscarriage in December 2018 with no dilatation andcurettage needed and then again in late 2018 with no dilatation and curettageneeded. The patient had a positive antinuclear antibody test in 2019, however,repeat testing has been negative. ALLERGIES: NO KNOWN ALLERGIES. FAMILY HISTORY: Noncontributory. REVIEW OF SYSTEMS: As per history of present illness. MEDICATIONS: vitamins. REVIEW OF SYSTEMS: As per history of present illness. PHYSICAL EXAMINATION:VITAL SIGNS: Blood pressure of 123/74, pulse of 80, and respiratory rate of 18. The patient is afebrile.HEENT: Within normal limits.LUNGS: Clear to auscultation and percussion.HEART: Has a normal S1, S2.ABDOMEN: Soft and nontender with positive bowel sounds.PELVIC: The cervix is 6 cm dilated, 90% effaced, -1 station.EXTREMITIES: Shows no lesion.NEUROLOGIC: Grossly intact. NST is reactive with contractions every 4 to 5 minutes. IMPRESSION:1. Intrauterine at 40 and 6/7 weeks' gestation.2. Active labor. PATIENT NAME: FLORIDA AYALA PLAN: For labor management. Dictated By: Corbin Briscoe MD WT: HP:FPRESTON/PIETRO/KIPDD: 02/22/2021 06:40:49DT: 02/22/2021 08:51:01Conf#: [id number]/DID#: [id number] by Corbin Briscoe MD On 02/22/2021 10:36:18 AM at 1036 PATIENT NAME: FLORIDA AYALA and physical eksxdrfcfpa4464-88-69I39:51:00F.[id number] A VAvailable for patient kcmpNLSPNRALUOPIVY0292-63-16H31:36:56 2021-02-12 17:00:00 [id number]:00:[id number] 332 [facility] [address], [place] [address] PATIENT NAME: FLORIDA AYALA ADMIT DATE: 02/12/21ACCOUNT NO: [id number] ROOM NO: AGE: 30 SEX: F ADMITTING PHYSICIAN: ATTENDING PHYSICIAN : Corbin Briscoe MD ADMISSION DATE: 02/12/2021 HISTORY OF PRESENT ILLNESS: The patient is a 30-year-old 6, para 1,ectopic 1, SAB 3, admitted for evaluation of back pain with an intrauterinepregnancy at 39 weeks' gestation. Th e patient denies spontaneous rupture ofmembranes. The patient reports good movement. The patient's pregnancyhas been essentially uncomplicated. The patient's diet and activity are normal. PAST MEDICAL HISTORY: Significant fo r a spontaneous vaginal delivery at 41weeks in 2015, an ectopic in 2016 and 3 miscarriages in 2017, December 2018and then again 2018. The patient had a dilatation and curettage in 2017and 2019 with miscarriages. The patient had laparoscopic surgery in 2017 fortreatment of the ectopic. The patient also has a positive MARYBETH in 2019. ANAnow, however, is back to normal. MEDICATIONS: Include vitamins. SOCIAL HISTORY: Negative for smoking, drinking, or drugs. FAMILY HISTORY: Noncontributory. REVIEW O F SYSTEMS: As per history of present illness. PHYSICAL EXAMINATION:VITAL SIGNS: Blood pressure 114/76, pulse of 80, and respiratory rate of 18. The patient is afebrile.HEENT: Within normal limits.LUNGS: Clear to auscultation and percussion.HEART: Has a normal S1, S2.ABDOMEN: Soft and nontender with positive bowel sounds.PELVIC: Cervix is 1 cm dilated, 60% effaced, -3 station by nursing exam.EXTREMITIES: Shows no lesion.NEUROLOGIC: Grossly intact. LABORATORY DATA: NST is reactive with irregular contractions only. IMPRESSION:1. Intrauterine at 39 weeks' gestation.2. Back pain. PLAN: For monitoring as an outpatient with local therapy with a heating pad andTylenol. The patient is discharged home with precautions. PATIENT NAME: FLORIDA AYALA Dictated By: Corbin Briscoe MD WT: HP:F.RAFA/PIETRO/NTSDD: 02/12/2021 17:00:04DT: 02/12/2021 21:20:25Conf#: [id number]/DID#: [id number] by Corbin Briscoe MD On 02/22/2021 10:39:50 AM at 1040 PATIENT NAME: FLORIDA AYALA and physical luiigwhpfhg6370-32-50P76:20:00F.[id number] A VAvailable for patient xvgmVLRYZEBCTYFKYQ0983-43-56M75:40:47 2020-07-10 20:15:00 NXekfsjlevp982808044745-45-71R41:15:00 [facility] ([facility])EMERGENCY PROVIDER REPORTREPORT#:[id number] REPORT STATUS: SignedDATE:07/10/20 TIME: 2014 PATIENT: FLORIDA AYALA UNIT #: [id number]#: [id number] ROOM/BED:AGE: 29 SEX: F PCP PHYS: Roselia Argueta MDSERVICE AUTHOR: Andrew Grant MD * ALL edits or amendments must be made on the electronic/computer document * HPI-Nausea/Vomit/Diarrhea GeneralInitial Greet Date/Time 07/10/201907 PresentationChief Complaint VomitingHx Obtained From PatientOnset Occurred Weeks agoProgression since Onset IntermittentSeverity: Onset ModerateSeverity: Current Moderate Free Text HPI NotesFree Text HP I Tiadh24-xlbw-rnh A4 at approximately 9 weeks gestation by LMP of 05/09 who presents to the emergency department with 3 to 4 weeks of nausea and vomiting, it occurs after meals, and happens approximately 3 times per day. She has been taking Reglan as needed without relief, she has a prescription for Zofran but has not taken it. Patient also reports an intense intermittent spinning sensation, occurs with changes in head position, last minutes, occurs up to 3 times daily, resolves with being still She denies any other neurologic complaints such as ataxia, speech difficulty, facial droop, or lateralizing weakness No vaginal bleeding Review of Systems ROS StatementsComplete sys rev neg except as marked. Basic Review of SystemsBasic ROS EYES: N o redness, RESP: No SOB, CV: No chest pain, : No dysuria/frequency, MS: No ext swelling/pain, HEM : No bleeding/bruising, PSYCH: NL thought content Focused Review of SystemsConstitutionalDenies: Chills, Fatigue, Fever, Lethargy, Malaise, Recen t wt loss, Weakness - generalized. GIReports: Nausea, Rectal pain. Denies: Abdominal pain. Additional Review of SystemsGU FemaleReports: . Denies: Vaginal bleeding - abnl. Past Medical History - AdultStated Complaint N/V, 9 WKS, , LMP 05/09AllergiesCoded Allergies:No Known Allergies (12/09/19) Home MedicationsReported MedicationsPNV WITH FE FUMARATE/FA () 1 TAB PO DAILY Additional Medical HistoryEctopic pregnancySmoking status for patients 13 years old or older: Never Smoker Physical Exam Vital SignsVital SignsFirst Documented: Result Date Time Pulse Ox 100 07/10 1912 B/P 109/64 07/10 1912 B/P Mean 79 07/10 1912 O2 Delivery Room air 07/10 1912 Temp 36.8 07/10 1912 Pulse 89 07/10 1912 Resp 18 07/10 1912 Last Documented: Result Date Time Pulse Ox 100 07/10 1912 B/P 109/64 07/10 1912 B/P Mean 7 9 07/10 1912 O2 Delivery Room air 07/10 1912 Temp 36.8 07/10 1912 Pulse 89 07/10 1912 Resp 18 06/25 Review of Vital Signs Reviewed Focused PENeurologic Neurologic Oriented X3, Speech NL, No motor deficits, No sensory deficits, CNII - XII intact, Cerebellar NL, Memory NL, Gait NL Free Text PE NotesFree Text PE NotesGEN: Well appearing/NADHEAD: Atraumatic/NCEYES: PERRL, con j clearENT: Membranes moist, airway patentNECK: Supple, no stridor RESP: No resp distress, vanessa l RR, clear to auscultation bilaterallyCV: Warm, well perfused, regular rate and rhythm, no carotid bruitABD: Soft/non-tender, no rebound/guardingEXT: FROM, legs symmetric, no calf tendernessSKIN: No rashes, warm/dry PSYCH: NL thought content, normal affect Interpretation Diagnostics Lab Results InterpretationResultsLaboratory Tests 07/10/201907:[Embedded Image Not Available]Laboratory Tests: 07/10 Chemistry Sodium (135 - 145 mEq/L) 136 Potassium (3.5 - 5.0 mEq/L ) 3.7 Chloride (100 - 115 mEq/L) 100 Carbon Dioxide (22 - 31 mEq/L) 28 Anion Gap (10 - 20) 12.00 BUN (7 - 18 mg/dL) 9 Creatinine (0.5 - 1. 0 mg/dL) 0.6 Glomerular Filtr Rate (>60 ml/min) 12 0 Glucose (65 - 110 mg/dL) 82 Calcium (8.4 - 10.2 mg/dL) 9.6 Total Bilirubin (0.2 - 1.0 mg/dL) 0.4 AST (15 - 37 units/L) 20 ALT (12 - 78 units/L) 35 Total Alk Phosphatase (46 - 116 units/L) 81 Total Protein (6.3 - 8.2 gm/dL) 8.0 Albumin (3. 4 - 4.8 gm/dL) 4.1 Hematology WBC (6.6 - 12.1 K/mm3) 8.5 RBC (3.45 - 5.01 M/mm3) 4.54 Hgb (10.7 - 13.9 g/dL) 14.2 H Hct (32.1 - 42.1 %) 41.3 MCV (84.1 - 94.8 fL) 91 MCH (27 - 35 pg) 31.3 MCHC (32.2 - 34.1 gm/dL) 34.4 H RDW (12.4 - 16.5 %) 11.7 L Plt Count (133 - 385 K/mm3) 304 MPV (9.1 - 12.7 fl) 9.3 Neut % (Auto) (56.5 - 79.4 %) 69.9 Lymph % (Auto) (14.3 - 34.3 %) 22.5 [place] % (Auto) (5.1 - 10.4 %) 6.2 Eos % (Auto) (0.1 - 3.0 %) 0.6 Baso % (Auto) (0.1 - 1.0 %) 0. 4 Neut # (Auto) (K/mm3) 6.0 Lymph # (Auto) (K/mm3) 1.9 [place] # (Auto) (K/mm3) 0.5 Eos # (Auto) (K/mm3) 0.05 Baso # (Auto) (K/mm3) 0.0 Urines Urine Color (YELLOW) YELLOW Urine Appearance (CLEAR) CLOUDY A Urine pH (5 - 9) 7.0 Ur Specific [place] (1.001 - 1.035) 1.021 Urine Protein (NEG) NEGATIVE Urine Glucose (UA) (NEG) NEGATIVE Urine Ketones (NEG) NEGATIVE Urine Bloo d (NEG) NEG Urine Nitrite (NEG) NEG Urine Bilirubi n (NEG) NEGATIVE Urine Urobilinogen (NEG mg/dL) NEGATIVE Ur Leukocyte Esterase (NEG) NEG Urine RBC (NONE SEEN #/hpf) 0-2 Urine WBC (NONE SEEN #/hpf) 0-2 Ur Epithelial Cells (RARE - FEW #/HPF ) RARE Amorphous Sediment 2+ Urine Bacteria (RARE - FEW /HPF) RARE Urine Mucus (NONE SEEN) RARE Re-Evaluation MDM Free Text MDM NotesFree Text MDM [id number] female with hyperemesis and vertigo. Patient declines dizziness at this time and declined meclizine while in the ED. Would like prescription to gohome with. We will procee d with labs, hydration, antiemetics. Will reassess . Re-Evaluation/Progress #1Text/Dict NoteTolerated p.o., abdomen benign, she is comfortable with discharge plan. Rx meclizine. OB follow-up w/in a week. Return precautions given. Patient verbalized understanding.Time of Re-Eval 2044Re-Eval Status Improved ED CourseMedication(s) OrderedMedication(s) Ordered:Electrolytic, Caloric, And Audrey Sig/Ji Start time Last Medication Dose Route Stop Time Status Admin Sodium Chloride 1,000 ML X1ED STA 07/10 1908 DC 07/10 IV 07/10 Gastrointestinal Drugs Sig/Ji Start time Last Medication Dose Route Stop Time Status Admin Famotidine 20 MG X1ED STA 07/10 1908 DC 07/10 IV 07/10 Ondansetron HCl 4 MG X1ED STA 07/10 1908 DC 07/10 IV 07/10 Free Text MDM NotesFree Text MDM Notes1. Nausea and vomiting in - tolerated p.o. following Zofran and fluids. Will discharge to home with recommendations to take Zofran and Reglan (which she already has) as needed.2. Benign positional vertigo neurologically intact, no bruit, Rx meclizine Patient Discharge Departure Vital Signs/ConditionVital SignsFirst Documented: Result Date Time Pulse Ox 100 07/10 1912 B/P 109/64 07/10 1912 B/P Mean 79 07/10 1912 O2 Delivery Room air 07/10 1912 Temp 36.8 07/10 191 2 Pulse 89 07/10 1912 Resp 18 07/10 1912 Last Documented: Result Date Time Pulse Ox 100 07/10 1912 B/P 109/64 07/10 1912 B/P Mean 79 07/10 191 2 O2 Delivery Room air 07/10 1912 Temp 36.8 07/10 1912 Pulse 89 07/10 1912 Resp 18 07/10 1912 All vital signs available at the time of this entry have been reviewed. Clinical ImpressionClinical ImpressionPrimary Impression: Vomiting affecting , antepartumSecondary Impressions: Vertigo Disposition DecisionDischarge )( Discharged to Home Yes )( Time 2046 )( Date 07/10/20 Discharge/Care PlanCounseled Regarding Diagnosis, Lab results, Imaging studies, Need fo r follow-up,When to return to ED at 2120RPT #:[id number] OF REPORTEDEmergenc y department [id number]:15:00F.[id number] a ilable for patient [id number]:20:36 2019-12-09 22:08:00 [id number]:08:[address] [facility] ([facility])EMERGENCY PROVIDER REPORTREPORT#:[id number] REPORT STATUS: SignedDATE:12/09/19 TIME: 2207 PATIENT: FLOR[place] AYALA UNIT #: [id number]#: [id number] ROOM/BED:AGE: 29 SEX: F PCP PHYS: Corbin Briscoe AUTHOR: Jesu Andino MD * ALL edits or amendments must be made on the electronic/computer document * HPI-General Illness Free Text HPI NotesFree Text HPI Notes29 yrs old female thought she was and want to confirm. Light vaginal bleeding. NO abd pain. No vaginal discharge. GeneralInitial Greet Date/Time 12/09/192111 PresentationChief Complaint Vaginal bleeding Review of Systems ROS StatementsAll systems rev neg except as marked.Complete sys rev neg except as marked. Past Medical History - AdultStated Complaint VAGINAL BLEEDING,6 WKS AllergiesCoded Allergies:No Known Allergies (12/09/19) Home MedicationsReported MedicationsPNV WITH FE FUMARATE/FA () 1 TAB PO DAILY Review of Nursing Notes Rev avail, and agreeAdditional Medical HistoryEctopic pregnancySmoking status for patients 13 years old or older: Never Smoker Physical Exam Vital SignsVital SignsFirst Documented: Result Date Time Pulse Ox 98 12/09 2119 B/P 120/67 12/09 2119 B/P Mean 84 12/08 212 0 O2 Delivery Room air 12/09 2119 Temp 37.1 12/09 2119 Pulse 91 12/09 2119 Resp 12/08 Last Documented: Result Date Time Pulse Ox 98 12/08 2232 B/P 120/66 12/08 2232 B/P Mean 84 12/08 2232 Temp 37.1 12/08 2232 Pulse 85 12/08 2232 Resp 12/08 O2 Delivery Room air 12/09 2119 Review of Vital Signs Reviewed Physical ExamGeneral/Const General/Const Awake, Alert, Well appearingMS Head Head NormocephalicEyes Eye s PERRLEars/Nose/Throat Ears/Nose/Throat Airway patent, Mucous membranes moist, Pharynx NLMS Nec k Neck Supple, No meningismus, Full range of motion, No swelling, Non-tender, No massesResp/Chest Respiratory/Chest Breath sounds NL, Breath sounds = bilat, No respiratory distress, No rales, No rhonchi, No wheezingCardiovascular Cardiovascular Heart rate NL, Regular rhythm, Heart sounds NL, Cap refill notdelayed, Peripheral circulation NLAbdomen/GI Abdomen/GI Soft, Non-tender, No guarding, No reboundMS Back Back Inspection NL, Painless rang e of motion, Non-tender, No CVA tendernessLymphati c Lymphatic No gross adenopathyMS Upper Extrem Upper Extremity/MS Inspection NL, No swelling, Non-tender, No erythema, No deformity, Neurologi c intact, Vascular intact, No clubbing/cyanosisMS Wrist/Hand Wrist/Hand Inspection NL, No swelling , No erythema, Non-tender, No deformity,Neurologic intact, Vascular intact, No clubbing/cyanosisMS Lower Extrem Lower Ext/Pelvis/MS Inspection NL, No swelling, Non-tender, No erythema, No deformity, Neurologic intact, Vascular intact, N o edemaMS Ankle/Foot Ankle/Foot Inspection NL, No swelling, No erythema, Non-tender, No deformity,Neurologic intact, Vascular intact, No edemaSkin Skin Color NL, Warm, Dry, Turgor NLGenitourinary General Patient refused examNeurologic Neurologic Oriented X3, Speech NL , No motor deficits, No sensory deficitsPsychiatri c Psychiatric Affect NL, Mood NL, Thought content NL Interpretation Diagnostics Lab Results InterpretationResultsLaboratory Tests 12/09/192129:[Embedded Image Not Available]Laboratory Tests: 12/08 Chemistry Sodium (135 - 145 mEq/L) 137 Potassium (3.5 - 5.0 mEq/L) 4.1 Chloride (100 - 115 mEq/L ) 102 Carbon Dioxide (22 - 31 mEq/L) 31 Anion Gap (10 - 20) 8.60 L BUN (7 - 18 mg/dL) 14 Creatinine (0.5 - 1.0 mg/dL) 1.1 H Glomerular Filtr Rate (>60 ml/min) 60 Glucose (65 - 110 mg/dL) 80 Calcium (8.4 - 10.2 mg/dL) 8.8 Serum , Qual NEGATIVE Hematology WBC (6.6 - 12.1 K/mm3) 6.8 RBC (3.45 - 5.01 M/mm3) 4.21 Hgb (10.7 - 13.9 g/dL) 13.1 Hct (32.1 - 42.1 %) 37.9 MCV (84.1 - 94.8 fL) 90 MCH (27 - 35 pg) 31.1 MCHC (32.2 - 34.1 gm/dL) 34.6 H RDW (12.4 - 16. 5 %) 12.2 L Plt Count (133 - 385 K/mm3) 247 MPV (9.1 - 12.7 fl) 9.1 Neut % (Auto) (56.5 - 79.4 %) 62.6 Lymph % (Auto) (14.3 - 34.3 %) 29.2 [place] % (Auto) (5.1 - 10.4 %) 6.4 Eos % (Auto) (0.1 - 3.0 %) 1.2 Baso % (Auto) (0.1 - 1.0 %) 0.3 Neut # (Auto) (K/mm3) 4.3 Lymph # (Auto) (K/mm3) 2.0 [place] # (Auto) (K/mm3) 0.4 Eos # (Auto) (K/mm3) 0.08 Baso # (Auto) (K/mm3) 0.0 Miscellaneous Maternal Serum HCG 11 Urines Urine HCG, Qual NEGATIVE 12/08 2120 Urines Urine Color (YELLOW) YELLOW Urine Appearance (CLEAR) Slightly-Cloudy Urine pH (5 - 9) 6.0 Ur Specific [place] (1.001 - 1.035) 1.025 Urine Protein (NEG) NEGATIVE Urine Glucose (UA) (NEG) NEGATIVE Urine Ketones (NEG) NEGATIVE Urine Blood (NEG) 3+ H Urine Nitrite (NEG) NEG Urine Bilirubin (NEG) NEGATIVE Urine Urobilinogen (NEG mg/dL) 4.0 H Ur Leukocyte Esterase (NEG) NEG Urine RBC (NONE SEEN #/hpf) TOO NUMEROUS TO CNT H Urine WBC (NONE SEEN #/hpf ) 0-2 Ur Epithelial Cells (RARE - FEW #/HPF) RARE Urine Bacteria (RARE - FEW /HPF) RARE Urine Mucus (NONE SEEN) RARE Lab StatementLaboratory studies reviewed and considered in the medical decision-making. Point of Care TestingPulse Oximetry Pulse Ox % 99 On: Room air Interpretation Interpreted by me, Pulse oximetry normal Time 0714 Re-Evaluation MDM Free Text MDM NotesFree Text MDM Notes29 yrs old female though t she was and want to confirm. Normal cbc , cmp, uaNegative uptNegative quantitave. No abd pain. No nausea, vomiting.d/c home with follow with dr. Paz. Patient Discharge Departure Vital Signs/ConditionVital SignsFirst Documented : Result Date Time Pulse Ox 98 12/09 2119 B/P 120/67 12/09 2119 B/P Mean 84 12/09 2119 O2 Delivery Room air 12/09 2119 Temp 37.1 12/08 0 Pulse 91 12/09 2119 Resp 18 12/09 2119 Last Documented: Result Date Time Pulse Ox 98 12/08 2232 B/P 120/66 12/08 2232 B/P Mean 84 12/08 223 3 Temp 37.1 12/08 2232 Pulse 85 12/08 2232 Resp 1 8 12/08 2232 O2 Delivery Room air 12/09 2119 All vital signs available at the time of this entry have been reviewed. Condition Improved, Stable Clinical ImpressionClinical ImpressionPrimary Impression: Menstrual bleeding problemTime of Impression 2208 Disposition DecisionDischarge )( Discharged to Home Yes )( Time 2208 )( Date 12/09/19 Discharge/Care PlanCounseled Regarding Diagnosis, Lab results, Imaging studies, Need fo r follow-up,When to return to EDReferralsCorbin Briscoe MD (PCP) Quality MeasuresBP F/U for HTN F/u with PCP/other doc at 0715RPT #:[id number] OF REPORTEDEmergency department [id number]:08:00F.[id number] a ilable for patient [id number]:15:20 2019-06-20 18:28:00 [id number]:28:00 [facility] ([facility])EMERGENCY PROVIDER REPORTREPORT#:[id number] REPORT STATUS: SignedDATE:06/20/19 TIME: 1827 PATIENT: FLOR[place] AYALA UNIT #: [id number]#: [id number] ROOM/BED:AGE: 28 SEX: F PCP PHYS: Corbin Briscoe MDSERVICE AUTHOR : Jamie Floyd MD * ALL edits or amendments mus t be made on the electronic/computer document * HPI- Female GeneralConfirmed Patient Yifan guzman Greet Date/Time 06/20/191751 PresentationChief Complaint Vaginal bleedingHx Obtained From Patient)( Sudden in Onset? YesOnset Occurred TodaySymptom Duration Since onsetProgression since Onset UnchangedCaused by No trauma by historyLocation SuprapubicQuality AchingRadiationNo: Does not radiate, RUQ, LUQ, RLQ, LLQ, Abdomen upper, Abdomen lower, Back, Epigastric, Flank R, Flank L, Inguinal R, Inguinal L, Suprapubic. Severity: Onset Mild, Pain level 5 out of 10Severity: Current Mild, Pain level 5 out of 10Associated withDenies: Abdominal pain, Abrasion, Anorexia, Chills, Constipation, Fever, Hematemesis, Laceration, Nausea, Rash, UTI symptoms, Vomiting. Associated Other Pt denies other symptomsExacerbated by NothingRelieved by Nothing ContextRelated HistoryDenies: Abdominal surgery, Adhesions intra-abdominal, Cancer, Diabetes mellitus,Endometriosis, Ovarian torsion, Pelvic inflam disease, Polycystic ovary disease,Pyelonephritis, Single kidney, Tubo-ovarian abscess, Tubo-ovarian cyst, Ureterolithiasis, Urinary tract infection, Urolithiasis, Vesicoureteral reflux. Immunizatio n Status General All up to dateRecent Healthcare N o recent doctor visit, No recent hospitalizationSimilar Sx Previous Yes Free Text HPI NotesFree Text HPI Notespt has h/o 3 prior miscarriages presenting today VB. patient states that she is approx 6 weeks Risk- Female Risk StratificationEctopic Risk factors reviewed Review of Systems ROS StatementsAll systems rev neg except as marked. Free Text ROS NotesFree Text ROS NotesConstitutional: No Weight Change, No Fever, No Chills, No Night Sweats, No Fatigue, No Malaise ENT/Mouth: No Hearing Changes, No Ear Pain, No Nasal Congestion, No Sinus Pain,No Hoarseness, No sore throat, No Rhinorrhea, No Swallowing Difficulty Eyes: No Eye Pain, No Swelling, No Redness, No Foreign Body, No Discharge, No Vision Changes Cardiovascular: No Chest Pain, No SOB, No PND, No Dyspnea on Exertion, No Orthopnea, No Claudication, No Edema, No Palpitations Respiratory: No Cough, No Sputum, No Wheezing, No Smoke Exposure, No Dyspnea Gastrointestinal: No Nausea, No Vomiting , No Diarrhea, No Constipation, + Pain,No Heartbur n Genitourinary: + VB., No Dysmenorrhea, No DUB, N o Dyspareunia, No Dysuria, No Urinary Frequency, N o Hematuria, No Urinary Incontinence, No Urgency, No Flank Pain, No Urinary Flow Changes, No Hesitancy Musculoskeletal: No Arthralgias, No Myalgias, No Joint Swelling, No Joint Stiffness, No Back Pain, No Neck Pain, No Injury History Skin: No Skin Lesions, No Pruritis, No Hair Changes, No Breast/Skin Changes, NoNipple Discharge Neuro: No Weakness, No Numbness, No Paresthesias, No Loss of Consciousness, No Syncope, No Dizziness, No Headache, No Coordination Changes, No Recent Falls Psych: No Anxiety/Panic, No Depression, No Insomnia, No Personality Changes, NoDelusions, No SI/HI/AH/VH , No Social Issues, No Memory Changes, No Violence/Abuse Hx., No Eating Concerns Heme/Lymph: No Bruising, No Bleeding, No Transfusions History, No Lymphadenopathy Endocrine: No Polyuria, No Polydipsia, No Temperature Intolerance Past Medical History - AdultStated Complaint 6 WEEKS, VAGINAL BLEEDINGX 1 DAYAllergiesCoded Allergies:No Known Allergies (07/10/17) Home MedicationsReported MedicationsN o Known Home Medications Discontinued Reported MedicationsMECLIZINE (ANTIVERT) 25 MG PO DAILY Review of Nursing Notes Rev avail, and agreeAdditional Medical HistoryEctopic pregnancySmoking status for patients 13 years ol d or older: Never Smoker Physical Exam Vital SignsVital SignsFirst Documented: Result Date Time Pulse Ox 99 06/20 1758 B/P 108/70 06/20 175 8 B/P Mean 82 06/20 1758 O2 Delivery Room air 05/26 Temp 37.2 06/20 1758 Pulse 87 06/20 1758 Resp 16 06/20 1758 Last Documented: Result Date Time Pulse Ox 99 06/20 1758 B/P 108/70 06/20 175 8 B/P Mean 82 06/20 1758 O2 Delivery Room air 06/20 1758 Temp 37.2 06/20 1758 Pulse 87 06/20 1758 Resp 16 06/20 1758 Review of Vital Signs Reviewed Focused PEGeneral/Const General/Const Awake, Alert, Well appearingResp/Chest Respiratory/Chest Breath sounds NL, Breath sound s = bilat, No respiratory distress, No rales, No rhonchi, No wheezingCardiovascular Cardiovascula r Heart rate NL, Regular rhythm, Heart sounds NL, Peripheral circulation NLAbdomen/GI Abdomen/GI Soft, Non-tender, No guarding, No reboundMS Back Back Inspection NL, Non-tender, No CVA tendernessSkin Skin Color NL, No rash, Warm, Dry , Turgor NLGenitourinary General City Planning Aide present Female Genitourinary Atraumatic, External genitalia NL, No discharge, No cervical motion tend, Os closed, No foreign body, No adnexal mass Vaginal Bleeding/Discharge Bleeding mild. Negative: Bleeding moderate, Bleeding severe, Clots present, Tissue present, Discharge brown, Discharge bloody, Discharge clear, Discharge malodorous, Discharge monilial, Discharge serosanguinous, Discharge thick, Discharge thin, Discharge white, Discharge yellow, Discharge scant, Discharge copious. External Genitalia Negative: Swelling present, Tenderness present, Erythema present, Bartholin cyst/abscess R, Bartholin cyst/abscess L, Labial abscess R, Labial abscess L, Mass present, Lesions present, Chancre present, Papules present, Ulcers present. Pelvic Exam Negative: Cervical motion tend, Cervical lesions pres, Cervix hyperemic, IUD present, Os is open, Vaginal lesions present, Foreign body present, Mass present, Adnexal mass R, Adnexal mass L, Adnexal tenderness R, Adnexal tenderness L, Uterus enlarged, Uterus tender, Uterine prolapse present. Interpretation Diagnostics Lab Results InterpretationResultsLaboratory Tests 06/20/191837:[Embedded Image Not Available]Laboratory Tests: 06/20 Chemistry Sodium (135 - 145 mEq/L) 138 Potassium (3.5 - 5.0 mEq/L ) 4.4 Chloride (100 - 115 mEq/L) 105 Carbon Dioxid e (22 - 31 mEq/L) 27 Anion Gap (10 - 20) 10.90 BU N (7 - 18 mg/dL) 13 Creatinine (0.5 - 1.0 mg/dL) 0.5 Glomerular Filtr Rate (>60 ml/min) 149 Glucose (65 - 110 mg/dL) 85 Calcium (8.4 - 10.2 mg/dL) 8.4 Total Bilirubin (0.2 - 1.0 mg/dL) 0.4 AST (15 - 37 units/L) 24 ALT (12 - 78 units/L) 2 2 Total Alk Phosphatase (46 - 116 units/L) 68 Tota l Protein (6.3 - 8.2 gm/dL) 6.8 Albumin (3.4 - 4. 8 gm/dL) 3.7 Hematology WBC (6.6 - 12.1 K/mm3) 7.9 RBC (3.45 - 5.01 M/mm3) 4.31 Hgb (10.7 - 13.9 g/dL) 13.4 Hct (32.1 - 42.1 %) 38.9 MCV (84.1 - 94.8 fL) 90 MCH (27 - 35 pg) 31.1 MCHC (32.2 - 34.1 gm/dL) 34.4 H RDW (12.4 - 16.5 %) 11.[address] Count (133 - 385 K/mm3) 236 MPV (9.1 - 12.7 fl) 9.8 Neut % (Auto) (56.5 - 79.4 %) 65.2 Lymph % (Auto) (14.3 - 34.3 %) 27.6 [place] % (Auto) (5.1 - 10.4 %) 5.9 Eos % (Auto) (0.1 - 3.0 %) 0.8 Baso % (Auto) (0.1 - 1.0 %) 0.4 Neut # (Auto) (K/mm3) 5.1 Lymph # (Auto) (K/mm3) 2.2 [place] # (Auto) (K/mm3) 0.5 Eos # (Auto) (K/mm3) 0.06 Baso # (Auto) (K/mm3) 0.0 Immature Plt Fraction (0.0 - 10.8 %) 0.0 Miscellaneous Maternal Serum HCG 24 0 Urines Urine Color (YELLOW) YELLOW Urine Appearance (CLEAR) Slightly-Cloudy Urine pH (5 - 9) 6.0 Ur Specific [place] (1.001 - 1.035) 1.024 Urine Protein (NEG) NEGATIVE Urine Glucose (UA) (NEG) NEGATIVE Urine Ketones (NEG) NEGATIVE Urin e Blood (NEG) 3+ H Urine Nitrite (NEG) NEG Urine Bilirubin (NEG) NEGATIVE Urine Urobilinogen (NEG mg/dL) NEGATIVE Ur Leukocyte Esterase (NEG) NEG Urine RBC (NONE SEEN #/hpf) TOO NUMEROUS TO CNT H Urine WBC (NONE SEEN #/hpf) 3-5 H Ur Epithelial Cells (RARE - FEW #/HPF) RARE Urine Mucus (NONE SEEN) RARE Recent Impressions:ULTRASOUND - US TRANSVAGINAL W/PELVIS 06/20 1855 Report Impression - Status: SIGNED Entered: 06/20/20192011 IMPRESSION: 1. The endometrial stripe measures 1.9 cm thick and appears mobile oncinematic images suggesting blood clot. There are several smallendometrial cysts. This could represent molar . There is nointrauterine or extrauterine gestation detected. The findings couldbe secondary to spontaneous expulsion of products, hiddenectopic or very early . Close clinical correlationis recommended. Consider short-term follow-up ultrasound and betahCG.2. There is a small amount of simple angelika e fluid in the pelvis.3. There is an indeterminate complex 1.9 x 1.5 x 1.5 cm cyst in theleft ovary . This could be a hemorrhagic corpus luteal cyst, butcystic neoplasm is not excluded. Consider 4-6 week follow-upultrasound to evaluate further. Ovarian protocol unenhanced andcontrast-enhanced MRI could also be considered, but is not advised atthis potential early gestational age.Impressio n By: [email or web address] - Paul Lema, DOULTRASOUND - S PELVIS COMPLETE 06/20 1855 Report Impression - Status: SIGNED Entered: 06/20/20192011 IMPRESSION: 1. The endometrial stripe measures 1.9 cm thick and appears mobile oncinematic images suggesting blood clot. There are several smallendometrial cysts. This could represent molar . There is nointrauterine or extrauterine gestation detected. The findings couldbe secondary to spontaneous expulsion of products, hiddenectopic or very early . Close clinical correlationis recommended. Consider short-term follow-up ultrasound and betahCG.2. There is a small amoun t of simple free fluid in the pelvis.3. There is a n indeterminate complex 1.9 x 1.5 x 1.5 cm cyst in theleft ovary. This could be a hemorrhagic corpu s luteal cyst, butcystic neoplasm is not excluded. Consider 4-6 week follow-upultrasound to evaluat e further. Ovarian protocol unenhanced andcontrast-enhanced MRI could also be considered, but is not advised atthis potential early gestational age.Impression By: [email or web address] - Paul Lema, DO Re-Evaluation MDM Free Text MD Aguilar NotesFree Text MDM Noteshcg 240, US not showing gest sac. advised early f/u 2-3 days with pcp or return here. communicated findings w/ patient, she expresses understanding and will f/u Patient Discharge Departure Vital Signs/ConditionVital SignsFirst Documented: Result Date Time Pulse Ox 99 06/20 1758 B/P 108/70 06/20 1758 B/P Mean 82 06/20 1758 O2 Delivery Room air 06/20 1758 Temp 37.2 06/20 1758 Pulse 87 06/20 175 Resp 16 10/10 01 1758 Last Documented: Result Date Time Pulse Ox 99 06/20 1758 B/P 108/70 06/20 1758 B/P Mean 82 06/208 O2 Delivery Room air 06/20 1758 Temp 37.2 06/20 1758 Pulse 87 06/20 175 Resp 16 06/20 1758 All vital signs available at the time of this entry have been reviewed. Clinical ImpressionClinical ImpressionPrimary Impression: Threatened Disposition DecisionDischarg e )( Discharged to Home Yes )( Time 2016 )( Date 06/20/19 Discharge/Care PlanCounseled Regarding Diagnosis, Lab results, Imaging studies, Need fo r follow-up,When to return to ED Discharge NoteI have spoken with the patient and/or caregivers. I have explained the patient'scondition, diagnoses and treatment plan based on the information available to meat this time. I have answered the patient's and/or caregiver's questions and addressed any concerns. The patient and/or caregivers have as good an understanding of the patient's diagnosis, condition and treatment kristi n as can beexpected at this point. The vital signs have been stable. The patient's condition is stable and appropriate for discharge from the emergency department. The patient will pursue further outpatient evaluation with the primary care physician or other designated or consulting physician as outlined in the discharge instructions. The patient and/or caregivers are agreeable to this planof care and follow-up instructions have been explained in detail. The patient and/or caregivers have received these instructions in written format and have expresse d an understanding of the discharge instructions. The patient and/or caregivers are aware that any significant change in condition or worsening of symptoms should prompt an immediate return to this or the closest emergency department or a call to 911. Quality MeasuresBP F/U for HTN Referred for BP f/u < 4wkSmoking Cessation Screened, non user at 2017RPT #:[id number] OF REPORTEDEmergency department [id number]:28:00F.[id number] a ilable for patient [id number]:18:27 2019-01-08 14:46:00 [id number]:46:00 [facility] ([facility])Full Op NoteREPORT#:[id number] REPORT STATUS: SignedDATE:01/08/19 TIME: 1445 PATIENT: FLOR[place] AYALA UNIT #: [id number]#: [id number] ROOM/BED:: 92 AGE: 28 SEX: F ATTEND: Corbin Briscoe [facility] AUTHOR: Corbin Briscoe MD * ALL edits or amendments must be made on the electronic/computer document * Operative ReportStart date: 01/08/19Start time: 1445Pre-procedure diagnosis:Missed AB at 8 weeksPost-procedure diagnosis:Missed Ab at 8 weeks, vaginal skin tagProcedures performed:Suction D and C and excision af vagina l skin tagTechnique/Procedure:Suction D and CPrimary Surgeon: Corbin HernandezoAssistant(s): noneAnesthesia: general anesthesiaOperative findings:Uterus sounded to 8 cmComplications: noneEstimated blood loss in ml's: 25 ccSpecimens removed/altered: POCs to path and skin tag to pathImplant(s): noneDisposition: plan to D/C homeCounts: Sponge count: correct Instrument count: correct Needle count: correctDictation number:#[id number] at 1449 RPT #:[id number] OF REPORT OPOperative [id number]:46:00F.[id number] a ilable for patient [id number]:49:58 2019-01-08 14:45:00 [id number]:45:00 [facility])OB Admission / H PREPORT#:[id number] REPORT STATUS: SignedDATE:01/08/19 TIME: 144 PATIENT: FLORIDA AYALA UNIT #: [id number]#: [id number] ROOM/BED:: 92 AGE: 28 SEX: F ATTEND: Corbin Briscoe [facility] AUTHOR: Corbin Briscoe MD * ALL edits or amendments must be made on the electronic/computer document * OB Admission H P HxChief complaint: Missed at 8 weeksNotes:See written H and PAllergiesCoded Allergies:No Known Allergies (07/10/17) Electronically Signed by Corbin Briscoe MD o n 01/08/19 at 1446 RPT #:[id number] OF REPORT HPHistory and physical [id number]:45:00F.[id number] AVAvailable for patient [id number]:46:27 2019-01-08 14:43:00 [id number] [address] [facility] [address], [place] [address] PATIENT NAME: FLORIDA AYALA ADMIT DATE: 01/08/19ACCOUNT NO: [id number] BROOK Aguilar NO: AGE: 28 SEX: F ADMITTING PHYSICIAN: ATTENDING PHYSICIAN: Corbin Briscoe MD OPERATION DATE: 01/08/2019 PREOPERATIVE DIAGNOSIS: Intrauterine a t 8 weeks with missed . POSTOPERATIVE DIAGNOSES: Intrauterine at 8 weeks wit h missed abortionand a vaginal skin tag. PROCEDURES: Suction dilatation and curettage and excisional biopsy of vaginalskin tag. SURGEON: Corbin Briscoe MD DIRECTOR PERIOPERATIVE: ANESTHESIA : General. COMPLICATIONS: None. DISPOSITION: To recovery room in good condition. PROPHYLAXIS: Ancef 2 grams. OPERATION IN DETAIL: After satisfactory induction of general anesthesia, thepatient was prepped and draped in usual sterile fashion in the dorsal lithotomyposition. A weighted speculum was placed in the posterior vagina and theanterior lip of the cervix was grasped with a single-tooth tenaculum. Thebladde r was emptied with a red rubber catheter. The cervix was sounded to 8 cm. The cervix was then dilated with Hegar dilators. A suction curettage was justperformed with a #6 flexible curette and this was followed by a sharp curettageto ensure complete evacuation of the products of conception. At the end of theprocedure, a 1-cm skin tag was noted to be protruding in the vagin a and thedecision was made to proceed with excisional biopsy. This was performed withMayo scissors and the base of the lesion was closed with 3-0 Vicryl suture. Thehemostasis was noted to be excellent and the patient was transferred to therecovery room in good condition, extubated . Dictated By: Corbin Briscoe MD WT: OP:FPRESTON/PIETRO/KIPDD: 01/08/2019 14:43:06DT: 01/08/2019 19:25:14Conf#: [id number]/DID#: [id number] PATIENT NAME: FLORIDA AYALA Authenticated by Corbin Briscoe MD On 01/19/2019 06:03:21 PM at 1803 PATIENT NAME: FLORIDA AYALA [id number]:25:00F.[id number] tino lab for patient [id number]:03:56
[2023-07-16 18:55] LABS: Specific Gravity 1.026 (1.005-1.030)
[2023-07-16 18:57] LABS: Specific Gravity 1.026 (1.005-1.030); Urine Bacteria <20 /HPF (<20); Urine Bilirubin NEGATIVE (Negative); Urine Blood Negative (Negative); Urine Clarity Turbid (Clear); Urine Color Light-Yellow (Yellow); Urine Glucose NEGATIVE (Negative); Urine Mucus Slight /HPF (None Seen); Urine Protein NEGATIVE (Negative); Urine RBC <5 /HPF (None Seen); Urine Urobilinogen Normal (Normal); Urine pH 6.5 (5.0-7.0)
[2023-07-16 19:00] LABS: SARS-CoV-2 Antigen Rapid Res Negative (Negative)
[2023-07-16 19:03] LABS: Absolute Lymphocytes (CBC) 1.7 K/uL (0.7-4.9); Hematocrit 35.4 % (36.0-45.0); MCV 87.2 fL (80-100); MPV 7.1 fL (7.6-11.3); Platelets 255 thou/uL (152-406); RBC Red Blood Cell Count 4.06 M/uL (3.86-4.86)
[2023-07-16 19:11] LABS: Potassium 3.8 mEq/L (3.5-5.1)
--- NOTE | 2023-07-16 19:38 | ER ---
Nurse's Notes [facility] Name: Marry Ascencio Age: 32 yrs Sex: Female : 1990 Arrival Date: 07/16/2023 Time: 17:51 Bed 14 Private MD: Diagnosis: Abnormal uterine and vaginal bleeding, unspecified;14 weeks gestation of Presentation: 07/16 18:13 Chief complaint: Headache, fever, and chills x 1 month, light vaginal bleeding x 1 hb week. . Coronavirus screen: At this time, the client does not indicate any symptoms associated with coronavirus-19. Ebola Screen: No symptoms or risks identified at this time. Initial Sepsis Screen: Does the patient meet any 2 criteria? No. Patient's initial sepsis screen is negative. Does the patient have a suspected source of infection? No. Patient's initial sepsis screen is negative. Risk Assessment: Do you want to hurt yourself or someone else? Patient reports no desire to harm self or others. Onset of symptoms was May 2023. 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 - Social history:: Smoking status: Patient denies any tobacco usage or history of. Screenin:51 [facility] ED Fall Risk Assessment (Adult) History of falling in the last 3 months, ko1 including since admission No falls in past 3 months (0 pts) Confusion or Disorientation No (0 pts) Intoxicated or Sedated No (0 pts) Impaired Gait No (0 pts) Mobility Assist Device Used No (0 pt) Altered Elimination No (0 pt) Score/Fall Risk Level 0 - 2 = Low Risk Oriented to surroundings, Maintained a safe environment, Educated pt \T\ family on fall prevention, incl call for assistance when getting out of bed, Assessed \T\ reinforced patient's understanding of fall precautions, Provided non-skid footwear, Hourly rounding (assess needs \T\ fall precautionary measures) done, Used ambulatory aids as needed (educated on \T\ assisted with). Abuse screen: Denies threats or abuse. Denies injuries from another. Nutritional screening: No deficits noted. Tuberculosis screening: No symptoms or risk factors identified. Assessment: 18:51 Pain: Denies pain. : Reports vaginal bleeding that is. ko1 19:20 General: Appears comfortable, Behavior is calm, cooperative. Pain: Denies pain. Neuro: ha1 Level of Consciousness is awake, alert, obeys commands, Oriented to person, place, time, situation. Cardiovascular: Patient's skin is warm and dry. Respiratory: Airway is patent Respiratory effort is even, unlabored, Respiratory pattern is regular, symmetrical. : Reports vaginal bleeding that is light flow. 20:00 Reassessment: discharge pending ultrasound results. ha1 20:27 Reassessment: Patient and/or family updated on plan of care and expected duration. Pain ha1 level reassessed. Patient is alert, oriented x 3, equal unlabored respirations, skin warm/dry/pink. Vital Signs: 18:13 BP 134 / 71; Pulse 88; Resp 16; Temp 99.2(TE); Pulse Ox 100% on R/A; Weight 54.43 kg; hb Height 5 ft. 1 in. ; Pain 2/10; 18:51 BP 111 / 79; Pulse 87; Resp 14; Pulse Ox 98% ; ko1 19:30 BP 125 / 75; Pulse 85; Resp 17 S; Pulse Ox 98% on R/A; ha1 18:13 Body Mass Index 22.67 (54.43 kg, 154.94 cm) hb 18:13 Pain Scale: Adult hb ED Course: 17:52 Patient arrived in ED. rg4 17:53 Nikkie Rose PA-C is PHCP. sb4 17:53 Hans Raines MD is Attending Physician. sb4 18:15 Triage completed. hb 18:15 Arm band placed on. hb 18:20 Allison Epperson, CLARA is Primary Nurse. ko1 18:51 Patient has correct armband on for positive identification. Placed in gown. Bed in low ko1 position. Call light in reach. Side rails up X 1. Pulse ox on. NIBP on. Door closed. Noise minimized. Warm blanket given. 18:51 Inserted saline lock: 22 gauge in right antecubital area, using aseptic technique. ko1 Blood collected. 19:08 Basic Metabolic Panel Sent. ha1 19:08 CBC with Diff Sent. ha1 19:23 US OB Limited In Process Unspecified. EDMS 20:29 No provider procedures requiring assistance completed. IV discontinued, intact, ha1 bleeding controlled, No redness/swelling at site. Pressure dressing applied. 20:30 Provided Education on: following up OB . ha1 Administered Medications: No medications were administered Medication: 20:30 VIS not applicable for this client. ha1 Outcome: 19:38 Discharge ordered by . sb4 20:30 Discharged to home ambulatory, ha1 20:30 Condition: stable 20:30 Discharge instructions given to patient, Instructed on discharge instructions, follow up and referral plans. Demonstrated understanding of instructions, follow-up care, 20:30 Patient left the ED. ha1 Signatures: Dispatcher [employer] EDMS Linda Haney RN RN hb Garcia, Rubi rg4 Syl Lopez RN RN ha1 Allison Epperson RN RN ko1 Nikkie Rose, PA-C PA-C sb4
--- NOTE | 2023-07-16 19:38 | RAD REPORT ---
EXAM DESCRIPTION: US - OB Limited - 07/16/2023 7:21 pm CLINICAL HISTORY: VAGINAL BLEEDING Pain and bleeding COMPARISON: <Comparisons> FINDINGS: A limited examination was requested by the emergency. A single live intrauterine fetus is present. [place]-rump length is 6.7 cm corresponding to 13 weeks 0 days. Heart rate is 153 BPM. Left ov sunni not well seen due to bowel gas. Right ovary measures 3.6 x 1.8 cm. Cervix appears to measure appr oximately 3.2 cm in length and is closed.
--- NOTE | 2023-07-16 19:38 | EDPHYS ---
Physician Documentation [facility] Name: Marry Ascencio Age: 32 yrs Sex: Female : 1990 Arrival Date: 07/16/2023 Time: 17:51 Bed 14 Private MD: ED Physician Hans Raines HPI: 07/16 18:53 This 32 yrs old Female presents to ER via Ambulatory with complaints of 14 sb4 Weeks , Vaginal Bleeding. 18:53 The patient presents to the emergency department with vaginal bleeding, that is light. sb4 The estimated gestational age is 14 weeks. course: care: no official OBGYN, has been taking prenatals, and had a normal US 3 weeks ago. Previous pregnancies: in previous pregnancies patient has had. Associated signs and symptoms: Pertinent positives: dysuria, vaginal bleeding, Pertinent negatives: chest pain, shortness of breath. The patient has not experienced similar symptoms in the past. 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 - Social history:: Smoking status: Patient denies any tobacco usage or history of. ROS: 18:53 Cardiovascular: Negative for chest pain, palpitations, and edema, sb4 18:53 Constitutional: Positive for chills, fever, 18:53 : Positive for urinary symptoms, vaginal bleeding, vaginal discharge, 18:53 All other systems are negative, Exam: 18:53 Constitutional: This is a well developed, well nourished patient who is awake, alert, sb4 and in no acute distress. Head/Face: Normocephalic, atraumatic. Eyes: Extra-ocular motions intact. Periorbital areas with no swelling, redness, or edema. ENT: Mucous membranes moist. Cardiovascular: Regular rate and rhythm with a normal S1 and S2. Respiratory: Lungs have equal breath sounds bilaterally, clear to auscultation and percussion. No rales, rhonchi or wheezes noted. No increased work of breathing, no retractions or nasal flaring. Abdomen/GI: Soft, non-tender, no distension. Skin: Warm, dry with normal turgor. Normal color with no rashes, no lesions, and no evidence of cellulitis. MS/ Extremity: Pulses equal, no cyanosis. Neurovascular intact. Full, normal range of motion. Neuro: Awake and alert, GCS 15, oriented to person, place, time, and situation. Motor strength 5/5 in all extremities. Sensory grossly intact. Vital Signs: 18:13 BP 134 / 71; Pulse 88; Resp 16; Temp 99.2(TE); Pulse Ox 100% on R/A; Weight 54.43 kg; hb Height 5 ft. 1 in. ; Pain 2/10; 18:51 BP 111 / 79; Pulse 87; Resp 14; Pulse Ox 98% ; ko1 19:30 BP 125 / 75; Pulse 85; Resp 17 S; Pulse Ox 98% on R/A; ha1 18:13 Body Mass Index 22.67 (54.43 kg, 154.94 cm) hb 18:13 Pain Scale: Adult hb MDM: 18:08 Patient medically screened. sb4 18:53 Differential diagnosis: STD, ectopic , UTI, pyelonephritis, flu, covid. sb4 19:38 Data reviewed: vital signs, nurses notes, lab test result(s), radiologic studies, and sb4 as a result, I will discharge patient. Counseling: I had a detailed discussion with the patient and/or guardian regarding the historical points, exam findings, and any diagnostic results supporting the discharge/admit diagnosis, lab results, radiology results, the need for outpatient follow up, an OB/Gyne specialist, to return to the emergency department if symptoms worsen or persist or if there are any questions or concerns that arise at home. 07/16 18:21 Order name: UAM; Complete Time: 18:58 sb4 07/16 18:21 Order name: Basic Metabolic Panel; Complete Time: 19:12 sb4 07/16 18:21 Order name: CBC with Diff; Complete Time: 19:17 sb4 07/16 18:21 Order name: SARS RAPID; Complete Time: 19:00 sb4 07/16 18:21 Order name: Flu; Complete Time: 19:07 sb4 07/16 18:21 Order name: Test, Urine; Complete Time: 18:56 sb4 07/16 18:21 Order name: US OB Limited; Complete Time: 19:39 sb4 07/16 18:21 Order name: IV Saline Lock; Complete Time: 19:08 sb4 07/16 18:21 Order name: Labs collected and sent; Complete Time: 19:08 sb4 Administered Medications: No medications were administered Disposition: 20:57 Co-signature as Attending Physician, Hans Raines MD I reviewed the patient's care rt provided by the Advanced Practice Provider and agree with the diagnosis and treatment plan. Disposition Summary: 07/16/23 19:38 Discharge Ordered Notes: Location: Home sb4 Problem: an ongoing problem sb4 Symptoms: are unchanged sb4 Condition: Stable sb4 Diagnosis - Abnormal uterine and vaginal bleeding, unspecified sb4 - 14 weeks gestation of sb4 Followup: sb4 - With: Private Physician - When: 2 - 3 days - Reason: Recheck today's complaints, Re-evaluation by your physician Discharge Instructions: - Discharge Summary Sheet sb4 - Care sb4 - Vaginal Bleeding During , Second Trimester sb4 Forms: - Medication Reconciliation Form sb4 - Thank You Letter sb4 - Antibiotic Education sb4 - Prescription Opioid Use sb4 - Patient Portal Instructions sb4 - Leadership Thank You Letter sb4 Signatures: Dispatcher [employer] EDLinda Deluna, RN RN Nikkie Lorenz, PA-C PA-C sb4 Hans Raines MD MD rt Corrections: (The following items were deleted from the chart) : 18:22 Transvaginal Ob+US.RAD.BRZ ordered. EDMS EDMS
[2023-07-16 21:01] VITALS: TEMP 99.2
[2023-07-16 21:03] VITALS: O2SAT 98
[2023-07-16 21:04] VITALS: BP 125/75
== END 2023-07-16 20:30 | disposition home or self-care (01) ==
LOC: ER 17:51
DX: O46.92 Antepartum hemorrhage, unspecified, second trimester (principal); Z3A.14 14 weeks gestation of pregnancy
CPT/HCPCS: 36415; 76815; 80048; 81001; 81025; 85025; 87804; 87811; 99284